=== PATIENT | male | born 1970 | race Caucasian/White ===

== ENCOUNTER → 2017-12-03 14:29 | Outpatient (CLI) | payer MEDICAID, SELFPAY ==
--- NOTE | 2017-12-03 14:33 | XR_ITS ---
XR shoulder LT min 2V HISTORY: ITS.REASON: follow up humerus fx/ internal, external y views ORDERING PHYSICIAN: Alexis Polanco MD PATIENT AGE: 47 years Comparison: 11/23/2017 FINDINGS: Comminuted impacted left humeral neck fracture once again noted with mild medial displacement of the distal fracture fragment. No significant callus formation. There remains moderate medial displacement of the distal fracture fragment. IMPRESSION: Overall no change comminuted and displaced left humeral neck fracture
== END ==
PROVIDERS: PCP Emergency Medicine; Visit Provider Orthopaedic Surgery
DX: S42.213A Unspecified displaced fracture of surgical neck of unspecified humerus, initial encounter for closed fracture (principal)
CPT/HCPCS: 73030

== ENCOUNTER 2020-02-29 20:01 | Inpatient (IN) | payer OTHER, SELFPAY ==
[2020-02-29 20:01] VITALS: BP 103/52; PULSE 100; RESP 18; TEMP 37.4; O2SAT 98; BMI 21.7
--- NOTE | 2020-02-29 20:06 | HMH.EDGENADL ---
ED Disposition Referrals: Demetrio Blackman MD [Primary Care Provider] - Attestation: On , the high probability of a clinically significant, sudden or life threatening deterioration of the following system(s) required my full and direct attention, intervention and personal management. The time I documented below is in addition to time spent performing reported procedures but includes the following listed in this critical care notation. General Adult HPI - General Stated complaint: knots on legs, can't walk Time Seen by Provider: 02/29/20 20:06 - Related Data Previous Rx's Medication Instructions Recorded propranolol 10 mg tablet 10 mg PO BID 90 Days #180 tab 12/17/19 albuterol sulfate 90 mcg/actuation See Rx Instructions .ROUTE 12/22/19 aerosol inhaler .COMPLEX #18 g tizanidine 4 mg tablet 4 mg PO BID PRN #14 tab 01/08/20 fluticasone furoate 100 See Rx Instructions .ROUTE 02/04/20 mcg-vilanterol 25 mcg/dose .COMPLEX #60 blister inhalation powder pantoprazole 40 mg tablet,delayed See Rx Instructions .ROUTE 02/04/20 release .COMPLEX #30 tab prochlorperazine maleate 5 mg 5 mg PO TID PRN #20 tab 02/27/20 tablet Allergies Allergy/AdvReac Type Severity Reaction Status Date / Time codeine [CODEINE] Allergy Unknown Nausea Verified 02/13/20 13:47 [facility] History - Hepatitis A Screen Attestation statement:: This patient has been screened for Hepatitis A risk factors. Medical History: Reports:: Seizures Denies:: Cancer, Diabetes Mellitus Type 1, Diabetes Mellitus Type 2, MRSA Other Surgeries: Yes: Hernia Repair Amputation: No Fractures: Yes - Social History Smoking Status: Current every day smoker Tobacco Type: cigarettes # Packs/Day (cigarettes): 1 Alcohol Intake: current Alcohol Intake Frequency:: 0-2 drinks per day Substance Use Type: denies use Occupational Status: unemployed Housing: apartment Family Hx:: Diabetes, Hypertension, Hyperlipidemia, Coronary Artery Disease, Cancer
--- NOTE | 2020-02-29 20:10 | ED_ITS ---
ED Disposition Referrals: Demetrio Blackman MD [Primary Care Provider] - Attestation: On 02/29/20, the high probability of a clinically significant, sudden or life threatening deterioration of the following system(s) required my full and direct attention, intervention and personal management. The time I documented below is in addition to time spent performing reported procedures but includes the following listed in this critical care notation. General Adult HPI - General Stated complaint: knots on legs, can't walk Time Seen by Provider: 02/29/20 20:06 - Related Data Previous Rx's Medication Instructions Recorded propranolol 10 mg tablet 10 mg PO BID 90 Days #180 tab 12/17/19 albuterol sulfate 90 mcg/actuation See Rx Instructions .ROUTE 12/22/19 aerosol inhaler .COMPLEX #18 g tizanidine 4 mg tablet 4 mg PO BID PRN #14 tab 01/08/20 fluticasone furoate 100 See Rx Instructions .ROUTE 02/04/20 mcg-vilanterol 25 mcg/dose .COMPLEX #60 blister inhalation powder pantoprazole 40 mg tablet,delayed See Rx Instructions .ROUTE 02/04/20 release .COMPLEX #30 tab prochlorperazine maleate 5 mg 5 mg PO TID PRN #20 tab 02/27/20 tablet Allergies Allergy/AdvReac Type Severity Reaction Status Date / Time codeine [CODEINE] Allergy Unknown Nausea Verified 02/13/20 13:47 [facility] History - Hepatitis A Screen Attestation statement:: This patient has been screened for Hepatitis A risk factors. Medical History: Reports:: Seizures Denies:: Cancer, Diabetes Mellitus Type 1, Diabetes Mellitus Type 2, MRSA Other Surgeries: Yes: Hernia Repair Amputation: No Fractures: Yes - Social History Smoking Status: Current every day smoker Tobacco Type: cigarettes # Packs/Day (cigarettes): 1 Alcohol Intake: current Alcohol Intake Frequency:: 0-2 drinks per day Substance Use Type: denies use Occupational Status: unemployed Housing: apartment Family Hx:: Diabetes, Hypertension, Hyperlipidemia, Coronary Artery Disease, Cancer
--- NOTE | 2020-02-29 20:14 | HMH.EDGENADL ---
ED Disposition Clinical Impression: Hyponatremia, Hypokalemia, Weakness, Acute alcohol abuse Disposition: Admitted As Inpatient Condition on Discharge: Fair Time of Disposition: 23:04 - Critical Care Critical Care Time: Yes Attestation: On 02/29/20, the high probability of a clinically significant, sudden or life threatening deterioration of the following system(s) required my full and direct attention, intervention and personal management. The time I documented below is in addition to time spent performing reported procedures but includes the following listed in this critical care notation. Total Critical Care Time: 30 Vital system(s) involved:: Metabolic Failure My critical care processes included: Assessment & monitoring of V/S, Initial and Re-exams, Data Review/Interpretation, Coordinating Care, Medication Orders and management, Documentation Medical Decision Making - Medical Records Medical records reviewed: Yes: I reviewed the patient's medical records. MR Comment: 49 yo Male presents the emergency department with weakness and rash in the lower extremities. He has had falls at home recently. He arrives the ED hemodynamically stable, with reassuring vital signs. Rash on his lower extremities initially appears petechial but it is palpable, nonblachable, and he has bruising of the right hip and other multiple larger bruises on his lower extremities. Will get labs and reassess. On reassessment, patient remained stable. Platelets are normal. His sodium is 110 and potassium is 1.8. He also has EKG changes, T waves are inverted, QRS wide, his sodium and potassium levels likely explain his bilateral lower extremity weakness. He is very been given a bolus of normal saline, started IV potassium rounds, he was given 2 g of magnesium, will also give thiamine and folate. Spoke with admitting physician, he will be admitted to the stepdown unit. CIWA protocol started given his history of alcoholism. Stable on admission. - Raffaele Inquiry Pt receiving controlled substance: No Vital Signs: 02/29/20 20:01 02/29/20 21:30 02/29/20 22:00 Temperature 99.3 F Temperature Source Oral Pulse Rate [Right Brachial] 100 H 94 H 100 H Respiratory Rate 18 17 22 Blood Pressure [Right Arm] 103/52 L 104/66 L 101/60 L Blood Pressure Mean [Right Arm] 69 78 73 Blood Pressure Source [Right Arm] Automatic Cuff Automatic Cuff Automatic Cuff Blood Pressure Position [Right Arm] Supine Supine 02 Sat by Pulse Oximetry 98 100 94 L Oxygen Delivery Method Room Air Room Air 02/29/20 22:30 02/29/20 23:44 03/01/20 00:00 Temperature 98.7 F 97.7 F Temperature Source Oral Oral Pulse Rate [Right Brachial] 88 86 101 H Respiratory Rate 17 24 22 Blood Pressure [Right Arm] 96/59 L 105/59 L 112/71 Blood Pressure Mean [Right Arm] 71 74 84 Blood Pressure Source [Right Arm] Automatic Cuff Blood Pressure Position [Right Arm] Supine 02 Sat by Pulse Oximetry 96 95 96 Oxygen Delivery Method Room Air Room Air Room Air - Lab Data Lab Results 02/29/20 20:36: WBC 4.6 L, RBC 3.14 L, Hgb 10.1 L, Hct 27.9 L, MCV 88.8, MCH 32.0 H, MCHC 36.0 H, RDW 13.8, Plt Count 148, MPV 9.2, Neut % (Auto) 69.5, Lymph % (Auto) 25.8, [place] % (Auto) 3.8, Eos % (Auto) 0.7, Baso % (Auto) 0.2, Neut # (Auto) 3.2, Lymph # (Auto) 1.2, [place] # (Auto) 0.2, Eos # (Auto) 0.0, Baso # (Auto) 0.0 02/29/20 20:36: PT 11.7, INR 1.15 H, APTT 29.0 02/29/20 20:36: Sodium 110 L*, Potassium 1.8 L*, Chloride 63 L, Carbon Dioxide 37 H, Anion Gap 11.8, BUN 9, Creatinine 0.60 L, Estimated Creat Clear 158, Estimated GFR 143, Est GFR ( Amer) 173, Glucose 126 H, Calcium 7.7 L, Total Bilirubin 1.9 H, AST 37, ALT 12, Alkaline Phosphatase 69, Total Protein 5.0 L, Albumin 2.7 L, Globulin 2.3, Albumin/Globulin Ratio 1.2 02/29/20 20:36: Plasma/Serum Alcohol 117 H 02/29/20 20:36: Phosphorus 2.7, Magnesium 1.4 L 02/29/20 20:36: SARS-CoV-2 IgG Ab (Rapid) Negative, SARS-CoV-2 IgM Ab (Rapid) Negative 02/29/20 21:57:
--- NOTE | 2020-02-29 20:25 | CT_ITS ---
PROCEDURE: CT HEAD/BRAIN WO CON CLINICAL INDICATION: weakness Generalized weakness, lower extremity weakness COMPARISON: CT HEADWO CT head/brain wo con from 01/19/2019 TECHNIQUE: Axial images obtained. All CT scans at the facility use one or more dose reduction, viz: automated exposure control, ma/kV adjustment per patient size (including targeted exams where dose is matched to indication, i.e. head), or iterative reconstruction technique. FINDINGS: No midline shift, mass effect, intracranial hemorrhage, hydrocephalus, or extra-axial fluid collection is evident. There is generalized atrophy with hypoattenuation of the periventricular white matter consistent with microangiopathic changes. The calvarium has an unremarkable appearance. No mastoid effusion. There is moderate mucosal thickening of the right maxillary sinus and mild mucosal thickening of the ethmoid sinuses. Medial right maxillary sinus osteotomy noted. There bubbly secretions in the nasopharynx and there is minimal mucosal thickening of the frontal sinuses. IMPRESSION: 1. No acute intracranial findings. 2. Sinus disease Dictated by: Doe Cervantes MD 03/01/2020 08:04 Doe Cervantes MD in [facility] 03/01/2020 08:04
--- NOTE | 2020-02-29 20:25 | XR_ITS ---
PROCEDURE: XR CHEST 2V CLINICAL HISTORY: weakness Smoker COMPARISON: CR CXR1 CHEST-PORTABLE from 08/23/2015 CR CXR1VP XR chest portable from 11/23/2017 CR XR CHEST 2V from 08/30/2019 FINDINGS: The cardiomediastinal silhouette and pulmonary vascularity are within normal limits. The lungs are clear without infiltrates, suspicious nodules, or pleural effusions. Nonspecific pleural thickening in the right lower hemithorax laterally. There is an old right 6th and 7th rib fracture. IMPRESSION: No acute findings. Dictated by: Doe Cervantes MD 03/01/2020 07:47 Doe Cervantes MD in [facility] 03/01/2020 07:47
--- NOTE | 2020-02-29 20:25 | XR_ITS ---
PROCEDURE: XR PELVIS 1-2V CLINICAL INDICATION: weakness COMPARISON: CR PEL1V XR pelvis 1-2V from 11/23/2017 TECHNIQUE: XR Pelvis AP View FINDINGS: No fracture or dislocation is evident. No significant degenerative change. No lytic or blastic change. IMPRESSION: No acute findings. Dictated by: Doe Cervantes MD 03/01/2020 07:48 Doe Cervantes MD in [facility] 03/01/2020 07:48
[2020-02-29 20:48] LABS: Basophils % 0.2 % (0.1-2.0); Eosinophils % 0.7 % (0.1-12.0); Hemoglobin 10.1 g/dL (14.1-18.0); Lymphocytes # 1.2 K/mm3 (0.7-4.5); Lymphocytes % 25.8 % (10-50); Mean Corpuscular Volume 88.8 fl (80-94); Mean Platelet Volume 9.2 fl (7.4-10.4); Monocytes # 0.2 K/mm3 (0.1-1.0); Monocytes % 3.8 % (1.7-9.3); Neutrophils # 3.2 K/mm3 (1.8-7.8); Neutrophils % 69.5 % (37.0-80.0); Platelet Count 148 K/mm3 (142-424); Red Blood Count 3.14 M/mm3 (4.60-6.20); Red Cell Distribution Width 13.8 % (11.5-17.5); White Blood Count 4.6 K/mm3 (4.8-10.8)
[2020-02-29 20:50] LABS: Hematocrit 27.9 % (42.0-52.0)
[2020-02-29 20:55] LABS: Alanine Aminotransferase 12 U/L (12-78); Bilirubin,Total 1.9 mg/dl (0.2-1.3); Blood Urea Nitrogen 9 mg/dl (9-20); Carbon Dioxide 37 mmol/L (22.0-30.0); Creatinine Clearance Estimated 158 mL/min (50-200); Estimated Glomerular Filt Rate 143 ml/min (>60); GFR (African American) 173 ML/MIN (>60); INR 1.15 (0.9-1.1); Prothrombin Time 11.7 seconds (9.4-11.8)
--- NOTE | 2020-02-29 21:22 | PC.NURSE ---
pt returned from CT
[2020-02-29 21:30] VITALS: BP 104/66; PULSE 94; RESP 17; O2SAT 100
[2020-02-29 21:35] LABS: Albumin Level 2.7 g/dl (3.5-5.0); Albumin/Globulin Ratio 1.2 (1.1-1.8); Alkaline Phosphatase 69 U/L (38-126); Anion Gap 11.8 mEq/L (5-15); Aspartate Amino Transferase 37 U/L (17-59); Calcium 7.7 mg/dl (8.4-10.2); Globulin 2.3 g/dL (1.3-3.2); Glucose 126 mg/dl (74-100)
[2020-02-29 21:39] LABS: Sodium 110 mmol/L (136-145)
[2020-02-29 21:40] LABS: Chloride 63 mmol/L (98-107); Potassium 1.8 mmoL/L (3.5-5.1)
[2020-02-29 21:41] LABS: Ethyl Alcohol 117 mg/dl (0-10)
--- NOTE | 2020-02-29 21:51 | PC.NURSE ---
call resp for VBG
[2020-02-29 21:55] LABS: Magnesium 1.4 mg/dl (1.6-2.3); Phosphorous 2.7 mg/dl (2.5-4.5)
[2020-02-29 21:58] LABS: VBG Base Excess 11.3 mmol/L (-2.4-2.3); VBG HCO3 31.2 mmol/L (23-30); VBG Oxygen Saturation 98.9 % (50-70); VBG PCO2 25.6 mmol/L (35-51); VBG PO2 197.7 mmol/L (28-40)
[2020-02-29 22:00] VITALS: BP 101/60; PULSE 100; RESP 22; O2SAT 94
--- NOTE | 2020-02-29 22:01 | ECG_ITS ---
APPROVED REPORT Exam: Resting ECG HR:104 bpm ECG Measurements Heart Rate 104 AXES QRSd 96 QRS 38 QT 526 T -46 QTc 691 <Conclusion> Sinus rhythm with First Degree AV Block with premature supraventricular complexes with occasional premature ventricular complexes T wave abnormality, consider inferior ischemia Abnormal ECG Electronically signed by : Joel Soliz, 03/02/2020 12:34:51
[2020-02-29 22:27] LABS: Microscopic, Urine URINE MICROSCOPIC (MICROSCOPIC)
[2020-02-29 22:28] LABS: Coronavirus 19 IgG Antibody Negative (Negative)
[2020-02-29 22:28] LABS: Appearance,Urine CLEAR (Clear); Bilirubin,Urine Negative (Negative); Blood, Urine Negative (Negative); Color,Urine DK YELLOW (Yellow); Glucose,Urine (UA) 1+ (Negative); Ketones,Urine Negative (Negative); Leukocyte Esterase,Urine Negative (Negative); Nitrate,Urine Negative (Negative); Protein,Urine TRACE (Negative); Specific Gravity, Urine 1.015 (1.005-1.030); Urobilinogen,Urine >=8.0 EU/dl (0.2)
[2020-02-29 22:29] LABS: Coronavirus 19 IgM Antibody Negative (Negative)
[2020-02-29 22:30] VITALS: BP 96/59; PULSE 88; RESP 17; O2SAT 96
[2020-02-29 22:31] LABS: PH,Urine >= 9.0 (5.0-8.5)
[2020-02-29 23:44] VITALS: BP 105/59; PULSE 86; RESP 24; TEMP 37.1; O2SAT 95
[2020-03-01] VITALS (22 sets, daily range): BP systolic 87–144; BP diastolic 40–87; PULSE 80–110; RESP 20–28; TEMP 36.4–38.4; O2SAT 90–97; BMI 23.6; BMI 23.2
--- NOTE | 2020-03-01 00:19 | PC.NURSE ---
patient up to floor via stretcher.
--- NOTE | 2020-03-01 02:33 | PC.NURSE ---
Pt restless and confused in bed. Tremors noted. Pt noted upon assessment to have raised areas and rash to BLE. He also has multiple bruising to inner thighs, (R) hip, buttocks and scrotum. Pictures on chart. Pt is receiving potassium infusions along with NS at this time. VSS. Will continue to monitor.
--- NOTE | 2020-03-01 08:11 | PC.NURSE ---
yoselyn singh rn provided care and documentation with my assistance and supervision
[2020-03-01 08:51] LABS: Anion Gap 8.3 mEq/L (5-15); Blood Urea Nitrogen 8 mg/dl (9-20); Calcium 7.2 mg/dl (8.4-10.2); Carbon Dioxide 31 mmol/L (22.0-30.0); Creatinine Clearance Estimated 251 mL/min (50-200); Estimated Glomerular Filt Rate 229 ml/min (>60); GFR (African American) 277 ML/MIN (>60); Glucose 110 mg/dl (74-100); Magnesium 1.9 mg/dl (1.6-2.3)
[2020-03-01 09:01] LABS: Chloride 75 mmol/L (98-107); Potassium 2.3 mmoL/L (3.5-5.1); Sodium 112 mmol/L (136-145)
--- NOTE | 2020-03-01 09:09 | HMH.PHAVTE ---
[facility] Pharmacy VTE Monitoring - Patient Demographics Admission date: 02/29/20 Report Date: 03/01/20 Time: 09:09 Allergies/Adverse Reactions: Patient Allergies codeine [CODEINE] Allergy (Unknown, Verified 02/29/20 20:39) Nausea Height: 1.85 m Weight: 79.549 kg Patient Problems: Current Active Problems Hypokalemia (Acute) Acute alcohol abuse (Acute) Hyponatremia (Acute) Weakness (Acute) - VTE Risk Labs: VTE Related Lab Results Hgb 10.1 g/dL (14.1-18.0) L 02/29/20 20:36 Hct 27.9 % (42.0-52.0) L 02/29/20 20:36 Plt Count 148 K/mm3 (142-424) 02/29/20 20:36 PT 11.7 seconds (9.4-11.8) 02/29/20 20:36 INR 1.15 (0.9-1.1) H 02/29/20 20:36 APTT 29.0 seconds (23.6-34.0) 02/29/20 20:36 BUN 8 mg/dl (9-20) L 03/01/20 08:20 Creatinine 0.40 mg/dl (0.66-1.25) L D 03/01/20 08:20 Estimated Creat Clear 251 mL/min (50-200) 03/01/20 08:20 Was VTE Risk Assessment Performed: Yes VTE Score: 1 VTE Risk Level: Very Low Risk - Prophylaxis VTE Prophylaxis Ordered?: Yes Types of VTE Prophylaxis: TEDS Knee High Location of Applied Device: Bilateral Lower Extremeties - VTE Diagnosis Confirmed Treatment or plan recommended: Continue Current Treatment
--- NOTE | 2020-03-01 09:09 | PC.NURSE ---
SPOKE WITH Marie MURPHY REGARDING PT LABS NA 112, K 2.3, PT STARTED ON NS 20K AT THIS TIME
--- NOTE | 2020-03-01 09:13 | HMH.PHAINT ---
MEDICATION RECONCILIATION COMPLETED ON PATIENT USING EXTERNAL FILL HISTORY FROM PHARMACY AND LIST FROM MD OFFICE. -JAYDEN KUNZD
[2020-03-01 09:35] LABS: Basophils % 0.4 % (0.1-2.0); Eosinophils # 0.1 K/mm3 (0.0-0.4); Eosinophils % 2.2 % (0.1-12.0); Hematocrit 25.8 % (42.0-52.0); Hemoglobin 9.4 g/dL (14.1-18.0); Lymphocytes # 0.7 K/mm3 (0.7-4.5); Lymphocytes % 18.3 % (10-50); Mean Corpuscular HGB Conc 36.4 g/dL (31.8-35.4); Mean Corpuscular Hemoglobin 32.8 pg (27.0-31.2); Mean Corpuscular Volume 90.2 fl (80-94); Mean Platelet Volume 8.5 fl (7.4-10.4); Monocytes # 0.2 K/mm3 (0.1-1.0); Monocytes % 4.8 % (1.7-9.3); Neutrophils # 2.7 K/mm3 (1.8-7.8); Neutrophils % 74.4 % (37.0-80.0); Platelet Count 143 K/mm3 (142-424); Red Blood Count 2.85 M/mm3 (4.60-6.20); White Blood Count 3.7 K/mm3 (4.8-10.8)
[2020-03-01 10:17] LABS: POC Glucose,Bedside 129 (70-110)
--- NOTE | 2020-03-01 13:01 | HMH.HP ---
*Admission Date: 02/29/20 *History of present illness: HPI narrative: 49-year-old male with history of hypertension hyperlipidemia presents the emergency department with weakness, and pain in his bilateral lower extremities. Mother states he has had a few falls at home recently, and has a bruise on his right hip. Mother gives a lot of the history for the patient, and states that he has had a rash pop up on his bilateral lower extremities over the last few days. She states he has not felt well and has had some weakness and pain in his legs over the last couple of weeks but the rash is newer. She also states he is had a cough. No fever. No history of symptoms like this prior. He denies any vertigo or dizziness. He denies any chest pain or back pain. He denies any trouble breathing. His main complaint is pain and weakness in his legs. He has not taken anything for this, denies anything makes it better or worse. No history of blood clots in the past. underwent ct brain FINDINGS: No midline shift, mass effect, intracranial hemorrhage, hydrocephalus, or extra-axial fluid collection is evident. There is generalized atrophy with hypoattenuation of the periventricular white matter consistent with microangiopathic changes. The calvarium has an unremarkable appearance. No mastoid effusion. There is moderate mucosal thickening of the right maxillary sinus and mild mucosal thickening of the ethmoid sinuses. Medial right maxillary sinus osteotomy noted. There bubbly secretions in the nasopharynx and there is minimal mucosal thickening of the frontal sinuses. IMPRESSION: 1. No acute intracranial findings. 2. Sinus disease History of ETOH. Few falls at home with eccymosis right hip. pelvis xray neg cxr neg hypokalemic and hyponatremic on admission serax given lytes being replaced H History Medical History: Reports:: Seizures Denies:: Cancer, Diabetes Mellitus Type 1, Diabetes Mellitus Type 2, MRSA *Have you ever received a pneumonia vaccine?: No *Have you received a flu vaccine this season?: No Other Surgeries: Yes: Hernia Repair Amputation: No Fractures: Yes - *Social History Last grade of school completed: High school graduate Smoking Status: Current every day smoker Tobacco Type: cigarettes # Packs/Day (cigarettes): 1 Alcohol Intake: current Alcohol Intake Frequency:: 3 or more drinks per day Substance Use Type: denies use *Occupational Status:: disabled Housing: apartment Household Members: none *Travel in the last 8 weeks: None Family Hx:: Diabetes, Heart Attack Review of Systems - Review of Systems Review of systems:: unable to obtain Meds Home Medications Medication Instructions Recorded Confirmed Type Albuterol Sulfate [Proventil Hfa] 2 puffs IH BIDP PRN 02/29/20 03/01/20 History Fluticasone/Vilanterol [Breo 1 puff IH DAILY 02/29/20 03/01/20 History Ellipta 100-25 Mcg INH] Pantoprazole Sodium [Protonix 40mg 40 mg PO DAILY 02/29/20 03/01/20 History tablet] Prochlorperazine Maleate 5 mg PO TIDP PRN 03/01/20 03/01/20 History [Compazine 5mg tablet] Propranolol HCl 10 mg PO BID 03/01/20 02/29/20 History Tizanidine HCl 4 mg PO BIDP PRN 03/01/20 03/01/20 History Allergies Allergy/AdvReac Type Severity Reaction Status Date / Time codeine [CODEINE] Allergy Unknown Nausea Verified 02/29/20 20:39 Exam Vital signs and Labs for Last 24 Hours: Temp Pulse Resp BP Pulse Ox 97.9 F 99 H 20 115/75 95 03/01/20 10:00 03/01/20 12:00 03/01/20 12:00 03/01/20 12:00 03/01/20 12:00 Laboratory Results - last 24 hr 02/29/20 20:36: WBC 4.6 L, RBC 3.14 L, Hgb 10.1 L, Hct 27.9 L, MCV 88.8, MCH 32.0 H, MCHC 36.0 H, RDW 13.8, Plt Count 148, MPV 9.2, Neut % (Auto) 69.5, Lymph % (Auto) 25.8, [place] % (Auto) 3.8, Eos % (Auto) 0.7, Baso % (Auto) 0.2, Neut # (Auto) 3.2, Lymph # (Auto) 1.2, [place] # (Auto) 0.2, Eos # (Auto) 0.0, Baso # (Auto) 0.0 02/29/20 20:36: PT 11.7, INR 1.15 H,
--- NOTE | 2020-03-01 18:27 | PC.NURSE ---
PT HAS BEEN IN THE BED ALL SHIFT. PT IS NOT ALERT/ORIENTED AND HAS A CIWA SCORE OF 13. MODERATE TREMORS. MILD PERSPIRATION. MANUAL BP'S T/O THE SHIFT B/C MONITOR WILL NOT RUG CLIPPER CORRECTLY WITH TREMORS. PT WAS MEDICATED WITH 2 DOSES OF ATIVAN 2 MG IV THAT PCP ORDERED FOR Q4H PRN. PT HAS NOT BEEN ALERT ENOUGH TO EAT ANYTHING THIS SHIFT BUT WAS ABLE TO TAKE HIS SERAX EARLIER THIS AFTERNOON WITH A SIP OF WATER AND LATER THIS AFTERNOON PO MEDS WERE CRUSHED AND MIXED WITH APPLESAUCE AND PT SPIT MOST OF APPLESAUCE AND PILLS OUT. PT HAS BRUISING NOTED TO THE LEFT HIP AND SCROTUM AND ALSO A RASH NOTED TO BLE. ACCORDING TO PT'S FRIEND THAT CAME TO SEE PT TODAY PT DRINKS FROM THE TIME HE WAKES UP TILL THE TIME HE GOES TO BED. FRIEND STATED PT FELL THE OTHER DAY SEVERAL TIMES WHEN HE WALKING AROUND DRUNK. PT'S MOTHER ARRIVED TO SEE PT THIS EVENING AND SHE STATED FAR SHE KNOWS PT'S LAST DRINK WAS 2-3 DAYS AGO AND PT HAS BEEN AN ALCOHOLIC SINCE HE WAS 16.
--- NOTE | 2020-03-01 19:10 | PC.NURSE ---
report given to florence
[2020-03-01 19:39] LABS: Anion Gap 8.5 mEq/L (5-15); Blood Urea Nitrogen 8 mg/dl (9-20); Carbon Dioxide 30 mmol/L (22.0-30.0); Creatinine Clearance Estimated 201 mL/min (50-200); Estimated Glomerular Filt Rate 177 ml/min (>60); GFR (African American) 214 ML/MIN (>60)
[2020-03-01 19:40] LABS: Calcium 7.5 mg/dl (8.4-10.2); Glucose 105 mg/dl (74-100)
[2020-03-01 19:57] LABS: POC Glucose,Bedside 112 (70-110)
[2020-03-01 19:59] LABS: Chloride 78 mmol/L (98-107)
[2020-03-01 20:00] LABS: Potassium 2.5 mmoL/L (3.5-5.1); Sodium 114 mmol/L (136-145)
[2020-03-02] VITALS (16 sets, daily range): BP systolic 107–142; BP diastolic 48–76; PULSE 85–100; RESP 16–20; TEMP 36.3–37.2; O2SAT 92–98; BMI 23.4
--- NOTE | 2020-03-02 04:37 | PC.NURSE ---
Pt has not been alert or oriented this shift. Responding to tactile stimulation, localizes pain, and has occasional mumbled/garbled speech for a GCS 9-10 this shift. CIWA's completed q2 per protocol, 13 at the beginning of the shift and current score 8. Pt has slept quietly for a few hours and then became restless in the bed. Ativan IV administered x2 for agitation, with effective response on reassessment. Yanker suction completed several times this shift d/t secretion accumulation. Oral care provided q2. TEDS have been in place BLE in intervals this shift d/t loose BM's and need for new application. Dense bruising and petechiea noted to skin. Rhochi noted on lung auscultation. O2 applied at 1LPM via nc for short duration d/t SaO2 88%, weaned back to room air quickly. current sat 96%. VSS, call light within reach, bed alarm in use, and seizure pads in place.
[2020-03-02 06:41] LABS: Basophils % 0.1 % (0.1-2.0); Eosinophils % 0.8 % (0.1-12.0); Hematocrit 24.9 % (42.0-52.0); Hemoglobin 8.8 g/dL (14.1-18.0); Lymphocytes # 0.6 K/mm3 (0.7-4.5); Lymphocytes % 20.2 % (10-50); Mean Corpuscular HGB Conc 35.4 g/dL (31.8-35.4); Mean Corpuscular Hemoglobin 32.6 pg (27.0-31.2); Monocytes # 0.1 K/mm3 (0.1-1.0); Monocytes % 3.3 % (1.7-9.3); Neutrophils # 2.2 K/mm3 (1.8-7.8); Neutrophils % 75.6 % (37.0-80.0); Platelet Count 126 K/mm3 (142-424); Red Cell Distribution Width 14.4 % (11.5-17.5); White Blood Count 2.9 K/mm3 (4.8-10.8)
[2020-03-02 06:59] LABS: Chloride 86 mmol/L (98-107); Sodium 121 mmol/L (136-145)
[2020-03-02 07:02] LABS: Blood Urea Nitrogen 7 mg/dl (9-20); Calcium 7.6 mg/dl (8.4-10.2); Carbon Dioxide 29 mmol/L (22.0-30.0); Creatinine Clearance Estimated 201 mL/min (50-200); Estimated Glomerular Filt Rate 177 ml/min (>60); GFR (African American) 214 ML/MIN (>60); Glucose 102 mg/dl (74-100)
[2020-03-02 07:17] LABS: POC Glucose,Bedside 104 (70-110)
--- NOTE | 2020-03-02 09:39 | XR_ITS ---
PROCEDURE: XR CHEST PORTABLE CLINICAL HISTORY: SOA COMPARISON: CR CXR1VP XR chest portable from 11/23/2017 CR XR CHEST 2V from 08/30/2019 CR XR CHEST 2V from 02/29/2020 FINDINGS: Borderline cardiomegaly without failure. There are increased markings in the lower lobes on both sides which may only be related to summation density from overlying soft tissues. This may be confirmed with upright PA and lateral chest as underlying infiltrate cannot be excluded in the lung bases. There is also increased density in the right upper lobe laterally which may be due to summation artifact from the overlying scapula and ribs. There is an old left humeral neck fracture. IMPRESSION: Somewhat limited study with increased markings in the right upper lobe and both lower lobes which may be due to artifact. Cannot exclude underlying alveolar disease. Upright PA and lateral chest may provide further evaluation. Dictated by: Doe Cervantes MD 03/02/2020 10:33 Doe Cervantes MD in [facility] 03/02/2020 10:33
--- NOTE | 2020-03-02 09:39 | HMH.ACPN2 ---
Internal Medicine - PN: Subj *Date: 03/02/20 *Time: 17:42 Interval history: 49-year-old male patient lying in bed moaning softly unresponsive to verbal stimuli is responsive to tactile stimuli. Staff reports he is required additional doses of Ativan IVP during the night due to restlessness, Serax is scheduled patient has had difficulty at times ingesting p.o. meds. He is receiving ceftriaxone and azithromycin IVPB prophylactically for CAP sodium today 121 potassium was 3.0 Exam Vital signs and Labs for Last 24 Hours: Temp Pulse Resp BP Pulse Ox 97.4 F L 96 H 20 128/52 L 98 03/02/20 08:33 03/02/20 08:00 03/02/20 08:00 03/02/20 08:00 03/02/20 08:00 Laboratory Results - last 24 hr 03/01/20 06:39: POC Glucose 129 H 03/01/20 19:22: Sodium 114 L*, Potassium 2.5 L*, Chloride 78 L, Carbon Dioxide 30, Anion Gap 8.5, BUN 8 L, Creatinine 0.50 L D, Estimated Creat Clear 201, Estimated GFR 177, Est GFR ( Amer) 214 D, Glucose 105 H, Calcium 7.5 L 03/01/20 19:47: POC Glucose 112 H 03/02/20 05:35: WBC 2.9 L, RBC 2.70 L, Hgb 8.8 L, Hct 24.9 L, MCV 92.0, MCH 32.6 H, MCHC 35.4, RDW 14.4, Plt Count 126 L, MPV 8.0, Neut % (Auto) 75.6, Lymph % (Auto) 20.2, [place] % (Auto) 3.3, Eos % (Auto) 0.8, Baso % (Auto) 0.1, Neut # (Auto) 2.2, Lymph # (Auto) 0.6 L, [place] # (Auto) 0.1, Eos # (Auto) 0.0, Baso # (Auto) 0.0 03/02/20 05:35: Sodium 121 L, Potassium 3.0 L, Chloride 86 L, Carbon Dioxide 29, Anion Gap 9.0, BUN 7 L, Creatinine 0.50 L, Estimated Creat Clear 201, Estimated GFR 177, Est GFR ( Amer) 214, Glucose 102 H, Calcium 7.6 L 03/02/20 06:41: POC Glucose 104 I & O for Last 24 hours: Intake & Output 02/28/20 02/29/20 03/01/20 03/02/20 23:59 23:59 23:59 23:59 Intake Total 135 / 135 3637 / 3637 Output Total 800 / 800 460 / 460 1300 / 1300 Balance -800 / -800 -325 / -325 2337 / 2337 Weight 165 lb 175 lb 6 oz 177 lb - Constitutional chronically ill appearing - *Routine HEENT Exam Head: Present: normocephalic ENT: Present: mucous membranes dry - *Routine Neck Exam Present: trachea midline. Absent: tracheal deviation - *Routine Respiratory Exam Present: rhonchi, wheezes - *Routine Cardiovascular Exam Present: RRR - *Routine Abdominal Exam Present: soft. Absent: firm - *Routine Extremities Exam Present: pulses intact. Absent: edema, amputation - *Routine Skin Exam Present: intact, warm. Absent: cyanosis, wounds - *Routine Neurological Exam Present: altered mental status - Routine Psychiatric Exam Present: unable to assess Assessment and Plan (1) Hypokalemia Current visit: Yes Status: Acute Category: Medical Code(s): E87.6 - Hypokalemia (2) Contusion Current visit: Yes Status: Acute Category: Medical Code(s): T14.8XXA - Other injury of unspecified body region, initial encounter (3) Acute alcohol abuse Current visit: Yes Status: Chronic Category: Medical Code(s): F10.10 - Alcohol abuse, uncomplicated (4) Hyponatremia Current visit: Yes Status: Acute Category: Medical Code(s): E87.1 - Hypo-osmolality and hyponatremia (5) Weakness Current visit: Yes Status: Acute Category: Medical Code(s): R53.1 - Weakness (6) Alcoholism Current visit: No Status: Chronic Category: Medical Code(s): F10.20 - Alcohol dependence, uncomplicated (7) Tobacco use Current visit: No Status: Chronic Category: Social Hx Code(s): Z72.0 - Tobacco use (8) Hypomagnesemia Current visit: Yes Status: Acute Category: Medical Code(s): E83.42 - Hypomagnesemia - Assessment and plan all Dx Assessment and Plan for all problems:: Rounded with Dr. Gresham, all orders for Dr. Gresham: 1. Continue antibiotics 2. We will order chest x-ray 3. Ammonia stat 4. We will start Protonix 40 mg IV daily
[2020-03-02 12:46] LABS: Ammonia < 9 umol/L (9-30)
--- NOTE | 2020-03-02 13:29 | PC.NURSE ---
PT IS RESTING IN BED. CIWA SCORE OF 10. PT HAS HAD TREMORS THIS SHIFT BUT THEY ARE BETTER THAN THEY WERE YESTERDAY. PT STILL HAS THE SAME BRUISING NOTED TO HIS RT HIP AND SCROTUM. PT HAD REQUIRED ORAL CARE AND SUCTIONING FREQUENTLY(HORRIBLE DENTAL HYGIENE). PT HAD BLOOD TINGED SPUTUM SUCTIONED EARLIER (REPORTED TO SLOAN RAMESH). LUNG SOUNDS HAVE SCATTERED RHONCHI T/O. WHILE SUCTIONING PT OPENED HIS EYES AND STATED 2X ( I'M DRUNK) PT WAS REASSURED THAT HE WAS NOT DRUNK AND HE WAS IN THE HOSPITAL. BOWEL SOUNDS NORMAL. VSS. WILL CONTINUE TO MONITOR.
[2020-03-02 18:04] LABS: POC Glucose,Bedside 114 (70-110)
[2020-03-02 18:04] LABS: POC Glucose,Bedside 156 (70-110)
[2020-03-02 18:45] LABS: POC Glucose,Bedside 91 (70-110)
[2020-03-02 18:45] LABS: POC Glucose,Bedside 91 (70-110)
[2020-03-03] VITALS (17 sets, daily range): BP systolic 101–159; BP diastolic 45–75; PULSE 80–96; RESP 18–40; TEMP 36.4–36.8; O2SAT 97–100; BMI 23.4
--- NOTE | 2020-03-03 02:37 | PC.NURSE ---
Pt continues to be only responsive to tactile stimuli. Pt has opened his eyes in fleeting moments during stimulation. Pt continues to not follow any commands. Wheezing and Rhonchi noted on lung auscultation. SaO2 >96% on room air thus far. Visible tremors greatly reduced in frequency compared to prev dumper operator. Mild- Moderate tremors still felt. Pt has been turned and repositioned q2-prn. NSR with 1st degree AVB noted on tele. Alberto cath in place d/t strict I/O, draining light asuncion- ylw/baum colored urine to gravity. Peripheral pulses 2+, no edema noted. Dense, scattered bruising noted to buttocks R>L, hips, scrotum, and light bruising to BLE. TEDS in place to BLE. Frequent oral care and mouth moisturizer applied. 1 small pasty/soft BM thus far. ABD is soft, non-tender with hypoactive BS noted. VSS, call light within reach, bed alarm active, seizure and safety precautions in use, will continue to monitor.
[2020-03-03 05:55] LABS: POC Glucose,Bedside 81 (70-110)
[2020-03-03 06:43] LABS: Chloride 102 mmol/L (98-107); Sodium 129 mmol/L (136-145)
[2020-03-03 06:44] LABS: Potassium 3.1 mmoL/L (3.5-5.1)
[2020-03-03 06:47] LABS: Anion Gap 13.1 mEq/L (5-15); Blood Urea Nitrogen 4 mg/dl (9-20); Calcium 7.6 mg/dl (8.4-10.2); Carbon Dioxide 17 mmol/L (22.0-30.0); Creatinine Clearance Estimated 254 mL/min (50-200); Estimated Glomerular Filt Rate 229 ml/min (>60); GFR (African American) 277 ML/MIN (>60); Glucose 78 mg/dl (74-100)
[2020-03-03 06:54] LABS: Basophils % 0.2 % (0.1-2.0); Eosinophils # 0.1 K/mm3 (0.0-0.4); Eosinophils % 2.1 % (0.1-12.0); Hematocrit 24.8 % (42.0-52.0); Hemoglobin 8.3 g/dL (14.1-18.0); Lymphocytes # 0.7 K/mm3 (0.7-4.5); Lymphocytes % 31.4 % (10-50); Mean Corpuscular HGB Conc 33.5 g/dL (31.8-35.4); Mean Corpuscular Hemoglobin 32.4 pg (27.0-31.2); Mean Corpuscular Volume 96.7 fl (80-94); Monocytes # 0.1 K/mm3 (0.1-1.0); Monocytes % 3.9 % (1.7-9.3); Neutrophils # 1.4 K/mm3 (1.8-7.8); Neutrophils % 62.4 % (37.0-80.0); Platelet Count 118 K/mm3 (142-424); Red Blood Count 2.56 M/mm3 (4.60-6.20); Red Cell Distribution Width 14.5 % (11.5-17.5); White Blood Count 2.3 K/mm3 (4.8-10.8)
--- NOTE | 2020-03-03 07:12 | PC.NURSE ---
Pt completed breakfast tray while in bed, pt refused to get OOB to chair. Pt ate ~ 50% of breakfast and tolerated well without any. Although pt feels and dull ache left chest to epigastric. Pt reports she thinks she is sitting up too much and wanted HOB to be let down some. No change on tele, NSR with BBB and rate of 101.
--- NOTE | 2020-03-03 08:58 | HMH.ACPN2 ---
Internal Medicine - PN: Subj *Date: 03/03/20 *Time: 12:07 Interval history: 49-year-old male patient lying in bed is responsive to tactile stimuli. Will answer simple yes or no questions. 2 doses of Ativan IV given during the night for restlessness. Had lengthy discussion regarding the patient's condition with mother Chest x-ray obtained 03/02/2020: IMPRESSION: Somewhat limited study with increased markings in the right upper lobe and both lower lobes which may be due to artifact. Cannot exclude underlying alveolar disease. Upright PA and lateral chest may provide further evaluation. Dictated by: Billy Patient is unable to sit upright in wheelchair or follow commands, he is being treated for pneumonia with azithromycin and Rocephin clindamycin will also be ordered today Exam Vital signs and Labs for Last 24 Hours: Temp Pulse Resp BP Pulse Ox 97.6 F 88 22 113/63 99 03/03/20 08:00 03/03/20 08:00 03/03/20 08:00 03/03/20 08:00 03/03/20 08:00 Laboratory Results - last 24 hr 03/01/20 10:46: POC Glucose 114 H 03/01/20 17:17: POC Glucose 156 H 03/02/20 11:55: POC Glucose 91 03/02/20 12:20: Ammonia < 9 L 03/02/20 16:29: POC Glucose 91 03/03/20 05:21: POC Glucose 81 03/03/20 05:54: WBC 2.3 L, RBC 2.56 L, Hgb 8.3 L, Hct 24.8 L, MCV 96.7 H, MCH 32.4 H, MCHC 33.5, RDW 14.5, Plt Count 118 L, MPV 8.0, Neut % (Auto) 62.4, Lymph % (Auto) 31.4, [place] % (Auto) 3.9, Eos % (Auto) 2.1, Baso % (Auto) 0.2, Neut # (Auto) 1.4 L, Lymph # (Auto) 0.7, [place] # (Auto) 0.1, Eos # (Auto) 0.1, Baso # (Auto) 0.0 03/03/20 05:54: Sodium 129 L, Potassium 3.1 L, Chloride 102, Carbon Dioxide 17 L D, Anion Gap 13.1, BUN 4 L D, Creatinine 0.40 L, Estimated Creat Clear 254, Estimated GFR 229, Est GFR ( Amer) 277 D, Glucose 78, Calcium 7.6 L I & O for Last 24 hours: Intake & Output 02/29/20 03/01/20 03/02/20 03/03/20 23:59 23:59 23:59 23:59 Intake Total 135 / 135 3637 / 3637 3277 / 3277 Output Total 800 / 800 460 / 460 2280 / 2280 1100 / 1100 Balance -800 / -800 -325 / -325 1357 / 1357 2177 / 2177 Weight 165 lb 175 lb 6 oz 177 lb 177 lb 2 oz - Constitutional no acute distress, chronically ill appearing, disheveled - *Routine HEENT Exam Head: Present: normocephalic ENT: Present: mucous membranes dry - *Routine Neck Exam Present: trachea midline. Absent: tracheal deviation - *Routine Respiratory Exam Present: rhonchi - *Routine Cardiovascular Exam Present: RRR - *Routine Abdominal Exam Present: soft, normoactive bowel sounds. Absent: firm - *Routine Extremities Exam Present: pulses intact. Absent: cyanosis, edema - *Routine Skin Exam Present: intact, warm. Absent: jaundice - *Routine Neurological Exam Present: altered mental status - Routine Psychiatric Exam Present: unable to assess Assessment and Plan (1) Hypokalemia Current visit: Yes Status: Acute Category: Medical Code(s): E87.6 - Hypokalemia (2) Contusion Current visit: Yes Status: Acute Category: Medical Code(s): T14.8XXA - Other injury of unspecified body region, initial encounter (3) Acute alcohol abuse Current visit: Yes Status: Chronic Category: Medical Code(s): F10.10 - Alcohol abuse, uncomplicated (4) Hyponatremia Current visit: Yes Status: Acute Category: Medical Code(s): E87.1 - Hypo-osmolality and hyponatremia (5) Weakness Current visit: Yes Status: Acute Category: Medical Code(s): R53.1 - Weakness (6) Alcoholism Current visit: No Status: Chronic Category: Medical Code(s): F10.20 - Alcohol dependence, uncomplicated (7) Tobacco use Current visit: No Status: Chronic Category: Social Hx Code(s): Z72.0 - Tobacco use (8) Hypomagnesemia Current visit: Yes Status: Acute Category: Medical Code(s): E83.42 - Hypomagnesemia - Assessment and plan all Dx Assessment and Plan for all problems:: Rounded with Dr. Gresham, all orders per Dr. Gresham: 1. Continue cheyanne
--- NOTE | 2020-03-03 10:10 | PC.NURSE ---
HOLDING SERAX PER MD. PT RESPONDS TO VERBAL COMMANDS, MINIMALLY. ABLE TO ANSWER YES OR NO QUESTIONS NOW. PT ALSO REQUEST TO LAY ON BACK INSTEAD OF SIDES. ENCOURAGED PT TO COUGH AND SPIT OUT ANYTHING HE COUGHS UP.
[2020-03-03 10:15] LABS: POC Glucose,Bedside 73 (70-110)
--- NOTE | 2020-03-03 18:16 | PC.NURSE ---
pt more alert. responds to conversation. still encouraging pt to use IS and to could up anything possible. spoke with Kvng HENSON regarding pt breathing, no new orders given. ventura cath in place, draining dark yellow urine. spoke with Benoit Singh, clindamycin is compatable with multi vit, folic acid, mag, vit k, thiamine, and LR. attempt to get a second iv has been unsuccessful. crow hose in place. vss. will cont. to monitor.
[2020-03-03 18:19] LABS: POC Glucose,Bedside 75 (70-110)
--- NOTE | 2020-03-03 18:29 | PC.NURSE ---
second iv placed by Alessio Farley RN #[id number] in [facility]
--- NOTE | 2020-03-03 19:04 | PC.NURSE ---
report given to florence
[2020-03-03 21:14] LABS: POC Glucose,Bedside 77 (70-110)
[2020-03-04] VITALS (10 sets, daily range): BP systolic 105–145; BP diastolic 61–80; PULSE 70–106; RESP 20–38; TEMP 36.4–37; O2SAT 98–100; BMI 23.6
--- NOTE | 2020-03-04 04:05 | PC.NURSE ---
ALERT TO PERSON AND PLACE BUT NOT TO TIME. SERVICE OPERATIONS MANAGER EQUAL BILAT. AGITATION NOTED AT TIMES THIS SHIFT. PT DEMANDING I AM GOING TO GO HOME. LET ME TALK TO THE DOCTOR. INFORMED PT OF IMPORTANCE OF STAYING IN THE HOSPITAL AND THAT IT WAS UNSAFE FOR HIM TO GO HOME AT THIS TIME R/T WEAKNESS AND RESPIRATORY STATUS. AFTER TALKING WITH PT ABOUT NEED TO STAY IN THE HOSPITAL AND USE OF PRN AND SCHEDULED MEDICATIONS TO HELP WITH AGITATION, PT MORE COOPERATIVE WITH CARE. TOLERATED SWALLOWING WATER/JUICE AND PILLS THIS SHIFT WELL. LUNGS NOTED WITH RHONCHI. COPIOUS AMOUNT OF BROWN/GREEN, THICK SPUTUM NOTED. COUGH IS LOOSE/ PRODUCTIVE, SPUTUM SPECIMEN COLLECTED AND SENT TO LAB. COUGH WAS ALSO NOTED WEAK. HARVEY USED PRN TO SUCTION SPUTUM INTO SUCTION CANISTER TO ASSIST PT TO CLEAR AIRWAY. ENCOURAGED USED OF INCENTIVE SPIROMETER, PT REFUSED TO USE IT OR DO DEEP BREATHING EXERCISES DESPITE EDUCATION OF IMPORTANCE. MD BUILDING SERVICES COORDINATOR NOTIFIED REGARDING PT'S BREATHING PATTERN TWICE THIS SHIFT, ORDER FOR XOPENEX OBTAINED AND ADMINISTERED PER AUG. ON REASSESSMENT, BREATHING PATTERN UNCHANGED, ADMINISTERED ATIVAN PER AUG, ON REASSESSMENT RR DECREASED FROM RR OF 40 TO 30'S. PT RESTED WITH EYES CLOSED. PULSES +2, CAP REFILL < 3 SEC. NSR WITH FIRST DEGREE HB. AT 0332 PT HAD AN ASYMPTOMATIC RUN OF VTACH. RN WAS IN ROOM WITH PT AT THE TIME OF RUN AND PT'S BEHAVIOR WAS UNCHANGED. TYLENOL WAS ADMINISTERED FOR C/O LEG PAIN. GARAY CATHETER IN PLACE , PATENT AND DRAINING CLEAR YELLOW URINE. PT TURNED AND REPOSITIONED, ORAL CARE PROVIDED Q2H. VSS. WILL CONTINUE TO MONITOR.
--- NOTE | 2020-03-04 05:00 | PC.NURSE ---
RIGHT RADIAL TRACELET DECREASED FROM 12 ML TO 10ML.
--- NOTE | 2020-03-04 05:15 | PC.NURSE ---
NO BLOODY DRAINAGE NOTED ON REASSESSMENT. DEFLATED AIR IN RIGHT RADIAL TRACELET TO 8 ML.
--- NOTE | 2020-03-04 05:30 | PC.NURSE ---
NO BLOODY DRAINAGE NOTED ON REASSESSMENT. DEFLATED AIR IN RIGHT RADIAL TRACELET TO 6 ML.
[2020-03-04 05:36] LABS: POC Glucose,Bedside 85 (70-110)
--- NOTE | 2020-03-04 05:45 | PC.NURSE ---
NO BLOODY DRAINAGE NOTED ON REASSESSMENT. DEFLATED AIR IN RIGHT RADIAL TRACELET TO 4 ML.
--- NOTE | 2020-03-04 06:00 | PC.NURSE ---
NO BLOODY DRAINAGE NOTED ON REASSESSMENT. DEFLATED AIR IN RIGHT RADIAL TRACELET TO 2 ML.
--- NOTE | 2020-03-04 06:15 | PC.NURSE ---
NO BLOODY DRAINAGE NOTED ON REASSESSMENT. DEFLATED AIR IN RIGHT RADIAL TRACELET TO 0 ML.
[2020-03-04 06:16] LABS: Basophils % 0.1 % (0.1-2.0); Eosinophils % 1.3 % (0.1-12.0); Lymphocytes # 0.7 K/mm3 (0.7-4.5); Lymphocytes % 36.4 % (10-50); Mean Corpuscular HGB Conc 34.1 g/dL (31.8-35.4); Mean Corpuscular Hemoglobin 32.4 pg (27.0-31.2); Mean Platelet Volume 8.8 fl (7.4-10.4); Monocytes # 0.1 K/mm3 (0.1-1.0); Monocytes % 5.2 % (1.7-9.3); Neutrophils # 1.1 K/mm3 (1.8-7.8); Neutrophils % 56.9 % (37.0-80.0); Platelet Count 125 K/mm3 (142-424); Red Blood Count 2.37 M/mm3 (4.60-6.20); Red Cell Distribution Width 14.8 % (11.5-17.5); White Blood Count 1.9 K/mm3 (4.8-10.8)
[2020-03-04 06:18] LABS: Chloride 107 mmol/L (98-107); Potassium 3.2 mmoL/L (3.5-5.1); Sodium 130 mmol/L (136-145)
[2020-03-04 06:21] LABS: Anion Gap 9.2 mEq/L (5-15); Blood Urea Nitrogen 3 mg/dl (9-20); Calcium 7.4 mg/dl (8.4-10.2); Carbon Dioxide 17 mmol/L (22.0-30.0); Creatinine Clearance Estimated 204 mL/min (50-200); Estimated Glomerular Filt Rate 177 ml/min (>60); GFR (African American) 214 ML/MIN (>60); Glucose 84 mg/dl (74-100)
--- NOTE | 2020-03-04 06:30 | PC.NURSE ---
NO BLOODY DRAINAGE NOTED ON REASSESSMENT. REMOVED RIGHT RADIAL TRACELET. RIGHT RADIAL PULSE +2. 2X2 GAUZE AND TEGADERM APPLIED, CDI. INTEGRILIN GTT RESTARTED AT THIS TIME.
[2020-03-04 06:33] LABS: Hematocrit 22.5 % (42.0-52.0); Hemoglobin 7.7 g/dL (14.1-18.0)
--- NOTE | 2020-03-04 08:18 | XR_ITS ---
PROCEDURE: XR CHEST PORTABLE CLINICAL HISTORY: increase rr Increased respiratory rate, shortness of air, cough COMPARISON: CR XR CHEST 2V from 08/30/2019 CR XR CHEST 2V from 02/29/2020 CR XR CHEST PORTABLE from 03/02/2020 FINDINGS: Mild cardiomegaly without failure. Bilateral lower lobe pneumonia and right upper lobe pneumonia is once again noted. This appears slightly worse on the right. No acute bony abnormalities. IMPRESSION: Bilateral pneumonia slightly worse on the right Dictated by: Doe Cervantes MD 03/04/2020 09:31 Doe Cervantes MD in [facility] 03/04/2020 09:31
--- NOTE | 2020-03-04 09:12 | HMH.ACPN2 ---
Internal Medicine - PN: Subj *Date: 03/04/20 *Time: 08:30 Interval history: a little more alert today. states no c/o. Exam Vital signs and Labs for Last 24 Hours: Temp Pulse Resp BP Pulse Ox 97.9 F 96 H 28 H 121/77 100 03/04/20 04:00 03/04/20 06:00 03/04/20 06:00 03/04/20 06:00 03/04/20 06:00 Laboratory Results - last 24 hr 03/03/20 10:08: POC Glucose 73 03/03/20 18:00: POC Glucose 75 03/03/20 20:24: POC Glucose 77 03/04/20 05:28: POC Glucose 85 03/04/20 05:35: WBC 1.9 L*, RBC 2.37 L, Hgb 7.7 L*, Hct 22.5 L*, MCV 95.0 H, MCH 32.4 H, MCHC 34.1, RDW 14.8, Plt Count 125 L, MPV 8.8, Neut % (Auto) 56.9, Lymph % (Auto) 36.4, [place] % (Auto) 5.2, Eos % (Auto) 1.3, Baso % (Auto) 0.1, Neut # (Auto) 1.1 L, Lymph # (Auto) 0.7, [place] # (Auto) 0.1, Eos # (Auto) 0.0, Baso # (Auto) 0.0 03/04/20 05:35: Sodium 130 L, Potassium 3.2 L, Chloride 107, Carbon Dioxide 17 L, Anion Gap 9.2, BUN 3 L, Creatinine 0.50 L D, Estimated Creat Clear 204, Estimated GFR 177, Est GFR ( Amer) 214 D, Glucose 84, Calcium 7.4 L I & O for Last 24 hours: Intake & Output 03/01/20 03/02/20 03/03/20 03/04/20 11:59 11:59 11:59 11:59 Intake Total 0 / 0 3772 / 3772 3277 / 3277 2686 / 2686 Output Total 1200 / 1200 1360 / 1360 2080 / 2080 2250 / 2250 Balance -1200 / -1200 2412 / 2412 1197 / 1197 436 / 436 Weight 175 lb 6 oz 177 lb 177 lb 2 oz 178 lb 5 oz Microbiology Reports for the Last 24 Hours: Microbiology 03/03/20 20:48 Sputum - Expectorated Sputum Gram Stain - Final - Constitutional no acute distress - *Routine HEENT Exam Head: Present: normocephalic Eye: Present: PERRL ENT: Present: mucous membranes moist - *Routine Neck Exam Present: supple. Absent: lymphadenopathy - *Routine Respiratory Exam Present: wheezes - *Routine Cardiovascular Exam Present: RRR - *Routine Abdominal Exam Present: soft, normoactive bowel sounds. Absent: tenderness - *Routine Extremities Exam Present: normal capillary refill. Absent: cyanosis, clubbing, edema - *Routine Skin Exam Present: warm. Absent: rash - *Routine Neurological Exam Present: alert states he is at [place] [facility] recheck h/h at 3- slow iv fluids - Routine Psychiatric Exam Present: normal affect Assessment and Plan (1) Hypokalemia Current visit: Yes Status: Acute Category: Medical Code(s): E87.6 - Hypokalemia (2) Contusion Current visit: Yes Status: Acute Category: Medical Code(s): T14.8XXA - Other injury of unspecified body region, initial encounter (3) Acute alcohol abuse Current visit: Yes Status: Chronic Category: Medical Code(s): F10.10 - Alcohol abuse, uncomplicated (4) Hyponatremia Current visit: Yes Status: Acute Category: Medical Code(s): E87.1 - Hypo-osmolality and hyponatremia (5) Weakness Current visit: Yes Status: Acute Category: Medical Code(s): R53.1 - Weakness (6) Alcoholism Current visit: No Status: Chronic Category: Medical Code(s): F10.20 - Alcohol dependence, uncomplicated (7) Tobacco use Current visit: No Status: Chronic Category: Social Hx Code(s): Z72.0 - Tobacco use (8) Hypomagnesemia Current visit: Yes Status: Acute Category: Medical Code(s): E83.42 - Hypomagnesemia - Assessment and plan all Dx Assessment and Plan for all problems:: rounded with dr mae all orders per dr mae
--- NOTE | 2020-03-04 09:28 | PC.NURSE ---
Pt out of step down at this time. Notified Tiffanie.
[2020-03-04 11:50] LABS: POC Glucose,Bedside 86 (70-110)
--- NOTE | 2020-03-04 15:01 | PC.NURSE ---
Addendum entered by Thalia Koenig RN 03/04/20 15:12: 1 mg Ativan given IV per MAR d/t pt being belligerent and agitated w/ staff. Original Note: Pt has been quite agitated this shift, requesting his mother and to go home. This nurse talker to pt's mother on phone and updated her on pt's status, states that she will be here later this afternoon. Explained to pt why he is at the hospital and oriented to situation. Pt is currently up to chair w/ bed alarm on. When transferring pt required assistance x2 d/t weakness. Pt has had poor intake this shift. Encouraged pt to drink fluids and periodically deep breathe and cough. Oral care has been performed Q2H as well as suctioning of mouth. Call noah w/in reach. No needs voiced at this time.
[2020-03-04 15:19] LABS: Basophils % 0.8 % (0.1-2.0); Eosinophils % 1.8 % (0.1-12.0); Hematocrit 25.8 % (42.0-52.0); Lymphocytes # 0.9 K/mm3 (0.7-4.5); Lymphocytes % 39.3 % (10-50); Mean Corpuscular Hemoglobin 31.6 pg (27.0-31.2); Mean Corpuscular Volume 93.1 fl (80-94); Mean Platelet Volume 7.6 fl (7.4-10.4); Monocytes # 0.1 K/mm3 (0.1-1.0); Monocytes % 4.5 % (1.7-9.3); Neutrophils # 1.2 K/mm3 (1.8-7.8); Neutrophils % 54.4 % (37.0-80.0); Platelet Count 143 K/mm3 (142-424); Red Blood Count 2.77 M/mm3 (4.60-6.20); Red Cell Distribution Width 14.8 % (11.5-17.5); White Blood Count 2.2 K/mm3 (4.8-10.8)
[2020-03-04 15:22] LABS: Hemoglobin 8.8 g/dL (14.1-18.0)
[2020-03-04 17:15] LABS: POC Glucose,Bedside 95 (70-110)
[2020-03-04 20:54] LABS: POC Glucose,Bedside 90 (70-110)
--- NOTE | 2020-03-04 20:59 | PC.NURSE ---
Pt's room air sat at rest = 98%
[2020-03-05] VITALS (7 sets, daily range): BP systolic 120–168; BP diastolic 71–90; PULSE 84–105; RESP 19–30; TEMP 36.3–36.9; O2SAT 95–100; BMI 24.0
[2020-03-05 05:28] LABS: POC Glucose,Bedside 88 (70-110)
--- NOTE | 2020-03-05 05:37 | PC.NURSE ---
shift summary, pt was anxious at beginning of shift, stated he wanted to go smoke, offered to get a nicotine patch for the patient and patient stated that those patches don't do no good, treated pt's anxiety per MAR, pt attempted to get out of bed twice to use urinal, had one episode of incontinence of urine in the bed, pt bathed and linens changed, has rested on and off the rest of shift, remains on room air, O2 sats from 95-100%
[2020-03-05 06:35] LABS: Chloride 106 mmol/L (98-107); Potassium 3.5 mmoL/L (3.5-5.1); Sodium 132 mmol/L (136-145)
[2020-03-05 06:38] LABS: Anion Gap 12.5 mEq/L (5-15); Blood Urea Nitrogen 2 mg/dl (9-20); Calcium 7.9 mg/dl (8.4-10.2); Carbon Dioxide 17 mmol/L (22.0-30.0); Creatinine Clearance Estimated 208 mL/min (50-200); Estimated Glomerular Filt Rate 177 ml/min (>60); GFR (African American) 214 ML/MIN (>60); Glucose 82 mg/dl (74-100)
[2020-03-05 06:45] LABS: Basophils % 0.7 % (0.1-2.0); Eosinophils # 0.1 K/mm3 (0.0-0.4); Hematocrit 26.3 % (42.0-52.0); Hemoglobin 8.6 g/dL (14.1-18.0); Lymphocytes # 0.7 K/mm3 (0.7-4.5); Lymphocytes % 43.4 % (10-50); Mean Corpuscular HGB Conc 32.9 g/dL (31.8-35.4); Mean Corpuscular Hemoglobin 31.9 pg (27.0-31.2); Mean Corpuscular Volume 97.1 fl (80-94); Mean Platelet Volume 8.4 fl (7.4-10.4); Monocytes # 0.1 K/mm3 (0.1-1.0); Monocytes % 5.2 % (1.7-9.3); Neutrophils # 0.8 K/mm3 (1.8-7.8); Neutrophils % 47.8 % (37.0-80.0); Platelet Count 137 K/mm3 (142-424); Red Cell Distribution Width 15.2 % (11.5-17.5); White Blood Count 1.7 K/mm3 (4.8-10.8)
--- NOTE | 2020-03-05 08:47 | HMH.ACPN2 ---
Internal Medicine - PN: Subj *Date: 03/05/20 *Time: 08:48 Interval history: Patient laying in bed more alert today. Exam Vital signs and Labs for Last 24 Hours: Temp Pulse Resp BP Pulse Ox 97.4 F L 99 H 19 120/71 99 03/05/20 07:59 03/05/20 07:59 03/05/20 07:59 03/05/20 07:59 03/05/20 07:59 Laboratory Results - last 24 hr 03/04/20 11:44: POC Glucose 86 03/04/20 15:10: WBC 2.2 L, RBC 2.77 L, Hgb 8.8 L D, Hct 25.8 L, MCV 93.1, MCH 31.6 H, MCHC 34.0, RDW 14.8, Plt Count 143, MPV 7.6, Neut % (Auto) 54.4, Lymph % (Auto) 39.3, [place] % (Auto) 4.5, Eos % (Auto) 1.8, Baso % (Auto) 0.8, Neut # (Auto) 1.2 L, Lymph # (Auto) 0.9, [place] # (Auto) 0.1, Eos # (Auto) 0.0, Baso # (Auto) 0.0 03/04/20 16:21: POC Glucose 95 03/04/20 20:23: POC Glucose 90 03/05/20 05:15: POC Glucose 88 03/05/20 05:50: WBC 1.7 L*, RBC 2.70 L, Hgb 8.6 L, Hct 26.3 L, MCV 97.1 H, MCH 31.9 H, MCHC 32.9, RDW 15.2, Plt Count 137 L, MPV 8.4, Neut % (Auto) 47.8, Lymph % (Auto) 43.4, [place] % (Auto) 5.2, Eos % (Auto) 3.0, Baso % (Auto) 0.7, Neut # (Auto) 0.8 L*, Lymph # (Auto) 0.7, [place] # (Auto) 0.1, Eos # (Auto) 0.1, Baso # (Auto) 0.0 03/05/20 05:50: Sodium 132 L, Potassium 3.5, Chloride 106, Carbon Dioxide 17 L, Anion Gap 12.5, BUN 2 L D, Creatinine 0.50 L, Estimated Creat Clear 208, Estimated GFR 177, Est GFR ( Amer) 214, Glucose 82, Calcium 7.9 L I & O for Last 24 hours: Intake & Output 03/02/20 03/03/20 03/04/20 03/05/20 11:59 11:59 11:59 11:59 Intake Total 3772 / 3772 3277 / 3277 2686 / 2686 3649 / 3649 Output Total 1360 / 1360 2080 / 2080 2250 / 2250 520 / 520 Balance 2412 / 2412 1197 / 1197 436 / 436 3129 / 3129 Weight 177 lb 177 lb 2 oz 178 lb 5 oz 181 lb 2 oz Microbiology Reports for the Last 24 Hours: Microbiology 03/03/20 20:48 Sputum - Expectorated Sputum Gram Stain - Final 03/03/20 20:48 Sputum - Expectorated Sputum Sputum Culture - Preliminary - Constitutional no acute distress - *Routine HEENT Exam Head: Present: normocephalic Eye: Present: PERRL ENT: Present: mucous membranes moist - *Routine Neck Exam Present: supple. Absent: lymphadenopathy - *Routine Respiratory Exam Present: wheezes, diminished air movement - *Routine Cardiovascular Exam Present: RRR - *Routine Abdominal Exam Present: soft, normoactive bowel sounds. Absent: tenderness - *Routine Extremities Exam Present: normal capillary refill. Absent: cyanosis, clubbing, edema - *Routine Skin Exam Present: warm. Absent: rash - *Routine Neurological Exam Present: alert, oriented X3 - Routine Psychiatric Exam Present: normal affect Assessment and Plan (1) Hypokalemia Current visit: Yes Status: Acute Category: Medical Code(s): E87.6 - Hypokalemia (2) Contusion Current visit: Yes Status: Acute Category: Medical Code(s): T14.8XXA - Other injury of unspecified body region, initial encounter (3) Acute alcohol abuse Current visit: Yes Status: Chronic Category: Medical Code(s): F10.10 - Alcohol abuse, uncomplicated (4) Hyponatremia Current visit: Yes Status: Acute Category: Medical Code(s): E87.1 - Hypo-osmolality and hyponatremia (5) Weakness Current visit: Yes Status: Acute Category: Medical Code(s): R53.1 - Weakness (6) Alcoholism Current visit: No Status: Chronic Category: Medical Code(s): F10.20 - Alcohol dependence, uncomplicated (7) Tobacco use Current visit: No Status: Chronic Category: Social Hx Code(s): Z72.0 - Tobacco use (8) Hypomagnesemia Current visit: Yes Status: Acute Category: Medical Code(s): E83.42 - Hypomagnesemia - Assessment and plan all Dx Assessment and Plan for all problems:: rounded with dr mae all orders per dr mae breathing treatments steroids out of bed for meals.
--- NOTE | 2020-03-05 10:30 | P.PN_ITS ---
Internal Medicine - PN: Subj *Date: 03/05/20 *Time: 10:30 Exam Vital signs and Labs for Last 24 Hours: Temp Pulse Resp BP Pulse Ox 97.4 F L 99 H 19 120/71 99 03/05/20 07:59 03/05/20 07:59 03/05/20 08:00 03/05/20 07:59 03/05/20 08:00 Laboratory Results - last 24 hr 03/04/20 11:44: POC Glucose 86 03/04/20 15:10: WBC 2.2 L, RBC 2.77 L, Hgb 8.8 L D, Hct 25.8 L, MCV 93.1, MCH 31.6 H, MCHC 34.0, RDW 14.8, Plt Count 143, MPV 7.6, Neut % (Auto) 54.4, Lymph % (Auto) 39.3, [place] % (Auto) 4.5, Eos % (Auto) 1.8, Baso % (Auto) 0.8, Neut # (Auto) 1.2 L, Lymph # (Auto) 0.9, [place] # (Auto) 0.1, Eos # (Auto) 0.0, Baso # (Auto) 0.0 03/04/20 16:21: POC Glucose 95 03/04/20 20:23: POC Glucose 90 03/05/20 05:15: POC Glucose 88 03/05/20 05:50: WBC 1.7 L*, RBC 2.70 L, Hgb 8.6 L, Hct 26.3 L, MCV 97.1 H, MCH 31.9 H, MCHC 32.9, RDW 15.2, Plt Count 137 L, MPV 8.4, Neut % (Auto) 47.8, Lymph % (Auto) 43.4, [place] % (Auto) 5.2, Eos % (Auto) 3.0, Baso % (Auto) 0.7, Neut # (Auto) 0.8 L*, Lymph # (Auto) 0.7, [place] # (Auto) 0.1, Eos # (Auto) 0.1, Baso # (Auto) 0.0 03/05/20 05:50: Sodium 132 L, Potassium 3.5, Chloride 106, Carbon Dioxide 17 L, Anion Gap 12.5, BUN 2 L D, Creatinine 0.50 L, Estimated Creat Clear 208, Estimated GFR 177, Est GFR ( Amer) 214, Glucose 82, Calcium 7.9 L I & O for Last 24 hours: Intake & Output 03/02/20 03/03/20 03/04/20 03/05/20 23:59 23:59 23:59 23:59 Intake Total 3637 / 3637 4468 / 4468 4114 / 4114 1030 / 1030 Output Total 2280 / 2280 2350 / 2350 1300 / 1300 220 / 220 Balance 1357 / 1357 2118 / 2118 2814 / 2814 810 / 810 Weight 80.286 kg 80.343 kg 80.881 kg 82.157 kg Microbiology Reports for the Last 24 Hours: Microbiology 03/03/20 20:48 Sputum - Expectorated Sputum Gram Stain - Final 03/03/20 20:48 Sputum - Expectorated Sputum Sputum Culture - Preliminary Assessment and Plan (1) Hypokalemia Current visit: Yes Status: Acute Category: Medical Code(s): E87.6 - Hypokalemia (2) Contusion Current visit: Yes Status: Acute Category: Medical Code(s): T14.8XXA - Other injury of unspecified body region, initial encounter (3) Acute alcohol abuse Current visit: Yes Status: Chronic Category: Medical Code(s): F10.10 - Alcohol abuse, uncomplicated (4) Hyponatremia Current visit: Yes Status: Acute Category: Medical Code(s): E87.1 - Hypo- osmolality and hyponatremia (5) Weakness Current visit: Yes Status: Acute Category: Medical Code(s): R53.1 - Weakness (6) Alcoholism Current visit: No Status: Chronic Category: Medical Code(s): F10.20 - Alcohol dependence, uncomplicated (7) Tobacco use Current visit: No Status: Chronic Category: Social Hx Code(s): Z72.0 - Tobacco use (8) Hypomagnesemia Current visit: Yes Status: Acute Category: Medical Code(s): E83.42 - Hypomagnesemia The patient's infection will respond to the chosen ABx?: Yes Is the patient receiving the right drug, dose, and route?: Yes Could a more targeted ABx be ordered?: No (AWAITING SPUTUM CULTURE)
[2020-03-05 10:59] LABS: POC Glucose,Bedside 98 (70-110)
[2020-03-05 15:38] LABS: POC Glucose,Bedside 119 (70-110)
--- NOTE | 2020-03-05 18:05 | PC.NURSE ---
patient lying in bed with safety measures in place. patient eating dinner. ciwa score 0. patient has not had any issues this shift.
--- NOTE | 2020-03-05 19:08 | PC.NURSE ---
report given to nupur
[2020-03-05 21:07] LABS: POC Glucose,Bedside 129 (70-110)
[2020-03-06] VITALS: BP 139/78; PULSE 100; PULSE 99; RESP 18; TEMP 36.7; O2SAT 100
[2020-03-06 04:00] VITALS: BP 123/80; PULSE 100; PULSE 101; RESP 20; TEMP 36.6; O2SAT 100
[2020-03-06 05:00] VITALS: BMI 24.4
--- NOTE | 2020-03-06 05:02 | PC.NURSE ---
Pt has been pleasant this shift, but has not slept much. Q4H CIWA scores have remained at 0 with the exception of 399 which was 1 . Pt was complaining of a mild BAILEY, PRN acetaminophen administered per AUG. Upon reassessment, pt's lungs have inspiratory and expiratory rhonchi along with expiratory wheezing noted as well t/o. Pt has used the incentive spirometer multiple times this shift appropriately. Call light is within reach, seizure pads remain in place. No other acute changes at this time.
[2020-03-06 06:37] LABS: Basophils % 0.5 % (0.1-2.0); Eosinophils % 0.7 % (0.1-12.0); Hematocrit 36.9 % (42.0-52.0); Hemoglobin 12.1 g/dL (14.1-18.0); Lymphocytes # 0.4 K/mm3 (0.7-4.5); Lymphocytes % 29.3 % (10-50); Mean Corpuscular HGB Conc 32.8 g/dL (31.8-35.4); Mean Corpuscular Hemoglobin 31.3 pg (27.0-31.2); Mean Corpuscular Volume 95.6 fl (80-94); Mean Platelet Volume 8.6 fl (7.4-10.4); Neutrophils # 0.9 K/mm3 (1.8-7.8); Neutrophils % 66.5 % (37.0-80.0); Platelet Count 103 K/mm3 (142-424); Red Blood Count 3.86 M/mm3 (4.60-6.20); Red Cell Distribution Width 15.4 % (11.5-17.5); White Blood Count 1.4 K/mm3 (4.8-10.8)
[2020-03-06 06:40] LABS: Chloride 106 mmol/L (98-107); Potassium 4.7 mmoL/L (3.5-5.1); Sodium 131 mmol/L (136-145)
[2020-03-06 06:40] LABS: POC Glucose,Bedside 118 (70-110)
[2020-03-06 06:43] LABS: Anion Gap 13.7 mEq/L (5-15); Blood Urea Nitrogen 4 mg/dl (9-20); Calcium 8.1 mg/dl (8.4-10.2); Carbon Dioxide 16 mmol/L (22.0-30.0); Creatinine Clearance Estimated 264 mL/min (50-200); Estimated Glomerular Filt Rate 229 ml/min (>60); GFR (African American) 277 ML/MIN (>60); Glucose 120 mg/dl (74-100)
[2020-03-06 08:00] VITALS: BP 131/77; PULSE 102; PULSE 104; RESP 19; TEMP 36.5; O2SAT 94; O2SAT 97
--- NOTE | 2020-03-06 11:15 | PC.NURSE ---
PT BECAME BELLIGERENT, PULLED OUT IV AND STATED HE WAS LEAVING AMA. DR CARLSON NOTIFIED WHILE ROUNDING AND DECIDED TO DISCHARGE PT. PT REFUSED FSBS
[2020-03-06 11:19] VITALS: BP 121/80; PULSE 102; RESP 18; TEMP 36.5; O2SAT 97
--- NOTE | 2020-03-06 11:33 | HMH.DCSUM ---
General - General Admission date:: 03/01/20 Discharge date: 03/06/20 HPI HPI: HPI narrative: 49-year-old male with history of hypertension hyperlipidemia presents the emergency department with weakness, and pain in his bilateral lower extremities. Mother states he has had a few falls at home recently, and has a bruise on his right hip. Mother gives a lot of the history for the patient, and states that he has had a rash pop up on his bilateral lower extremities over the last few days. She states he has not felt well and has had some weakness and pain in his legs over the last couple of weeks but the rash is newer. She also states he is had a cough. No fever. No history of symptoms like this prior. He denies any vertigo or dizziness. He denies any chest pain or back pain. He denies any trouble breathing. His main complaint is pain and weakness in his legs. He has not taken anything for this, denies anything makes it better or worse. No history of blood clots in the past. underwent ct brain FINDINGS: No midline shift, mass effect, intracranial hemorrhage, hydrocephalus, or extra-axial fluid collection is evident. There is generalized atrophy with hypoattenuation of the periventricular white matter consistent with microangiopathic changes. The calvarium has an unremarkable appearance. No mastoid effusion. There is moderate mucosal thickening of the right maxillary sinus and mild mucosal thickening of the ethmoid sinuses. Medial right maxillary sinus osteotomy noted. There bubbly secretions in the nasopharynx and there is minimal mucosal thickening of the frontal sinuses. IMPRESSION: 1. No acute intracranial findings. 2. Sinus disease History of ETOH. Few falls at home with eccymosis right hip. pelvis xray neg cxr neg hypokalemic and hyponatremic on admission serax given lytes being replaced Hospital Course Hospital Course: The patient was admitted and treated for alcohol withdrawal and anxiety. His mentation gradually improved, back to his baseline. Patient did have some wheezing and congestion, chest x-ray suggested a pneumonia, worse on the right. He was treated with IV Solu-Medrol and antibiotics. He had market electrolyte abnormalities which corrected. The day of his discharge he is alert, lucid and voicing that he is ready to go home. Follows Dr. Blackman at the clinic. Objective Vital signs: Temp Pulse Resp BP Pulse Ox 97.7 F 102 H 18 121/80 97 03/06/20 11:19 03/06/20 11:19 03/06/20 11:19 03/06/20 11:19 03/06/20 11:19 no acute distress, average body habitus - *Routine HEENT Exam Head: Present: normocephalic Eye: Present: EOMI, PERRL ENT: Present: mucous membranes moist - *Routine Neck Exam Present: supple - *Routine Respiratory Exam Present: decreased breath sounds, CTA bilaterally. Absent: accessory muscle use - *Routine Cardiovascular Exam Present: RRR - *Routine Abdominal Exam Present: soft, normoactive bowel sounds. Absent: tenderness - *Routine Extremities Exam Absent: cyanosis, clubbing, edema Comments: eccymosis right hip - *Routine Skin Exam Present: warm. Absent: jaundice, rash - *Routine Neurological Exam Present: alert, oriented X3, moving all extremities, normal tone, vision grossly intact, hearing grossly intact, normal speech. Absent: facial asymmetry - Routine Psychiatric Exam Present: anxious Results Labs on day of discharge: Labs from last 24 hours 03/06/20 03/06/20 03/06/20 06:17 06:15 06:15 WBC 1.4 L* RBC 3.86 L D Hgb 12.1 L Hct 36.9 L MCV 95.6 H MCH 31.3 H MCHC 32.8 RDW 15.4 Plt Count 103 L MPV 8.6 Neut % (Auto) 66.5 Lymph % (Auto) 29.3 [place] % (Auto) 3.0 Eos % (Auto) 0.7 Baso % (Auto) 0.5 Neut # (Auto) 0.9 L* Lymph # (Auto) 0.4 L [place] # (Auto) 0.0 L Eos # (Auto) 0.0 Baso # (Auto) 0.0 Sodium 131 L Potassium 4.7 D Chlor[place]
== END 2020-03-06 12:40 | disposition home or self-care (01) | DRG 896 ==
LOC: ER 20:13 → 2ND 23:05
PROVIDERS: Nurse Practitioner Family; Admitting Provider Family Medicine; Emergency Provider Emergency Medicine; PCP Emergency Medicine; Visit Provider Family Medicine
DX: F10.239 Alcohol dependence with withdrawal, unspecified (principal); J18.9 Pneumonia, unspecified organism; E87.1 Hypo-osmolality and hyponatremia; F10.229 Alcohol dependence with intoxication, unspecified; Y90.5 Blood alcohol level of 100-119 mg/100 ml; E87.6 Hypokalemia; Z72.0 Tobacco use; Z91.81 History of falling
CPT/HCPCS: 36415; 70450; 71045; 71046; 72170; 80048; 80053; 81001; 82140; 82803; 82962; 83735; 84100; 85025; 85610; 85730; 86328; 87070; 87205; 93005; 94640; 96365; 96366; 96367; 96375; 99284

== ENCOUNTER → 2020-06-22 16:51 | Outpatient (CLI) | payer OTHER, SELFPAY ==
--- NOTE | 2020-06-22 16:52 | MR_ITS ---
PROCEDURE: MR LUMBAR SPINE WO CON (3D MRI myelogram volume image set included) Referring Doctor: Alvino Gresham Patient Age:49Y CLINICAL INDICATION: low back pain Chronic low back pain since fell out of a barn many years ago. Patient denies recent trauma or new injury. COMPARISON: No exams were available for comparison TECHNIQUE: Standard multiplanar multiecho sequences are performed without contrast. 3-D MIP and myelographic images are also rendered and reviewed 3D MRI myelogram volume image set included FINDINGS: The lumbar vertebral bodies are intact and the disc heights are well maintained throughout the lumbar spine.. On only noting minor anterior marginal osteophyte formation at L2/3 with a developing small Schmorl's node inferior anterior aspect of L2 vertebral body at midline-with minor reactive bone changes about this area. Unimpressive but noted L5/S1 disc of hydration height intact; only slight loss disc hydration.. Scant negligible central disc bulge Moderate facet hypertrophy mildly encroach upon posterior aspect neural foramen on bilaterally.. L4/5. Intervertebral disc intact with only slight loss of disc hydration. Scant disc bulge most evident yielding mild encroachment upon the right foramen. Congenital modest underlying AP dimension of neural foramen suggested and the foramen are further narrowed by moderate facet hypertrophy., Also mild ligament flavum hypertrophy right more so than left. These features only slightly taper and only slightly narrow the spinal canal-but no significant central canal spinal stenosis as of yet L3/4 disc intact neural foramen unremarkable. L2/3, L1/2, T12/ L1 disc spaces intact well-hydrated and neural foramen widely patent. Unremarkable. Conus ends appropriately at L1/2 level. A aorta normal caliber no aneurysm. . There is mild diffuse fatty signal throughout filum terminalis, but is not enlarged.-basically normal variant 3D MR myelogram image set of reveals no prominent findings but there is only scant barely evident tapering thecal sac L4/5 most evident to the right due to features noted above IMPRESSION: 1...No disc herniation. No spinal stenosis, no prominent findings Minor observations//minimal degenerative changes. 2..Patient has modest AP dimension of neural foramen bilaterally at L4/5 and L5/S1, with foraminal additionally narrowed due to the minimal degenerative features noted below: -L4/5.: Moderate facet and ligament flavum hypertrophy-very slightly indent and taper thecal sac but with no significant central spinal stenosis as of yet.. -L5/S1: Moderate facet hypertrophy and scant central bulge Again the moderate facet hypertrophy and features noted above, yield relative narrowed appearance of neural foramen bilaterally at L4/5 and L5/S1 Dictated by: Moise Price MD 06/29/2020 11:01 Moise Price MD in [place] 06/29/2020 11:01
== END ==
PROVIDERS: PCP Family Medicine; Visit Provider Family Medicine
DX: G89.29 Other chronic pain (principal); M54.9 Dorsalgia, unspecified; M54.5 Low back pain
CPT/HCPCS: 72148; 76376

== ENCOUNTER 2020-09-28 21:33 | Emergency (ER) | payer OTHER, SELFPAY ==
[2020-09-28 21:33] VITALS: BP 118/86; PULSE 88; RESP 17; TEMP 36.8; O2SAT 99; BMI 28.8
[2020-09-28 21:40] VITALS: BP 120/81; PULSE 71; RESP 17; TEMP 37; O2SAT 99
--- NOTE | 2020-09-28 22:03 | PC.NURSE ---
Pt left without being seen, he did not want to stay any longer, Pt spoke with Brick Cleaner and left
== END 2020-09-28 21:46 | disposition left against medical advice (07) ==
PROVIDERS: Emergency Provider Emergency Medicine; PCP Family Medicine
DX: Z53.21 Procedure and treatment not carried out due to patient leaving prior to being seen by health care provider (principal)
CPT/HCPCS: 99211

== ENCOUNTER 2020-10-07 18:06 | Emergency (ER) | payer OTHER, SELFPAY ==
[2020-10-07 18:13] VITALS: BP 132/88; PULSE 84; RESP 20; TEMP 36.4; O2SAT 98; BMI 20.5
--- NOTE | 2020-10-07 18:17 | XR_ITS ---
PROCEDURE: XR CHEST PORTABLE CLINICAL HISTORY: SOB COMPARISON: CR XR CHEST 2V from 02/29/2020 CR XR CHEST PORTABLE from 03/02/2020 CR XR CHEST PORTABLE from 03/04/2020 FINDINGS: The cardiomediastinal silhouette and pulmonary vascularity are within normal limits. The lungs are clear without infiltrates, suspicious nodules, or pleural effusions. There is an old right 7th rib fracture. IMPRESSION: No change with no acute finding Dictated by: Doe Cervantes MD 10/07/2020 21:35 Doe Cervantes MD in [place] 10/07/2020 21:35
--- NOTE | 2020-10-07 18:24 | ECG_ITS ---
APPROVED REPORT Exam: Resting ECG HR:85 bpm ECG Measurements Heart Rate 85 AXES MT 224 P 60 QRSd 94 QRS 37 QT 394 T 47 QTc 468 Conclusion Sinus rhythm with 1st degree AV block Otherwise normal ECG Electronically signed by : Tenzin Luna, 10/10/2020 07:32:58
--- NOTE | 2020-10-07 18:32 | HMH.EDGENADL ---
ED Disposition Clinical Impression: Shortness of breath, Hypokalemia Disposition: Left Against Medical Advice Condition on Discharge: Good Referrals: PCP,No [Primary Care Provider] - - Critical Care Critical Care Time: No Attestation: On 10/07/20, the high probability of a clinically significant, sudden or life threatening deterioration of the following system(s) required my full and direct attention, intervention and personal management. The time I documented below is in addition to time spent performing reported procedures but includes the following listed in this critical care notation. Medical Decision Making - Medical Records Medical records reviewed: Yes: I reviewed the patient's medical records. - Raffaele Inquiry Pt receiving controlled substance: No Vital Signs: 10/07/20 18:13 10/07/20 19:22 Temperature 97.6 F 0 F L Temperature Source Oral Pulse Rate 0 L Pulse Rate [Radial] 84 Respiratory Rate 20 0 L Blood Pressure 000/00 L Blood Pressure [Right Arm] 132/88 Blood Pressure Mean [Right Arm] 102 Blood Pressure Position [Right Arm] Sitting 02 Sat by Pulse Oximetry 98 Oxygen Delivery Method Room Air Room Air - Lab Data Lab Results 10/07/20 18:33: WBC 3.8 L, RBC 4.90, Hgb 15.8, Hct 46.1, MCV 94.2 H, MCH 32.3 H, MCHC 34.3, RDW 15.0, Plt Count 196, MPV 7.4, Neut % (Auto) 39.0, Lymph % (Auto) 53.1 H, [place] % (Auto) 5.8, Eos % (Auto) 1.2, Baso % (Auto) 0.9, Neut # (Auto) 1.5 L, Lymph # (Auto) 2.0, [place] # (Auto) 0.2, Eos # (Auto) 0.1, Baso # (Auto) 0.0, Total Counted 100, Neutrophils % (Manual) 41 L, Lymphocytes % (Manual) 53 H, Monocytes % (Manual) 5, Eosinophils % (Manual) 1, Platelet Estimate Normal, RBC Morphology Normal 10/07/20 18:33: Sodium 137, Potassium 3.1 L, Chloride 96 L, Carbon Dioxide 25, Anion Gap 19.1 H, BUN 2 L, Creatinine 0.70, Estimated Creat Clear 130, Estimated GFR 119, Est GFR ( Amer) 144, Glucose 124 H, Calcium 9.5, Troponin I < 0.01 10/07/20 18:33: Plasma/Serum Alcohol 269 H 10/07/20 18:33: Magnesium 2.2 10/07/20 18:33: D-Dimer 0.81 H Result diagrams: 10/07/20 18:33 10/07/20 18:33 Orders (Tests/Meds): ORDERS Category Date Time Status CT angio chest Stat Cat Scan 10/07/20 19:12 Ordered XR chest portable Stat Exams 10/07/20 18:17 Taken Troponin I Q3H Lab 10/07/20 21:30 Ordered Troponin I Q3H Lab 10/08/20 00:30 Ordered Medical Decision Narrative: 50-year-old gentleman presents with shortness of air. He is in no acute distress nontoxic-appearing sitting comfortably in the bed. He is hemodynamically stable. He is not tachypneic if anything he appears to be intoxicated. Pulmonary embolism less likely, D-dimer assessed. Aortic dissection unlikely as his pneumothorax chest x-ray has been ordered. Myocardial infarction unlikely, EKG negative troponins ordered as well. D-dimer was elevated, CTA chest was ordered. Potassium replaced. Patient decided to leave AGAINST MEDICAL ADVICE. He is have capacity to make decisions even though his alcohol level was elevated. I recommended that he be taken home by his mom. He is adamant about not getting a further work-up at this time General Adult HPI - General Chief complaint: Shortness of Breath/Dyspnea Stated complaint: SOA Time Seen by Provider: 10/07/20 18:10 Mode of Arrival: EMS Limitations: No Limitations Description of Symptoms (Recalled from ER Triage Doc. by RN): TO ED PER SQUAD WITH C/O SOB STARTING YESTERDAY PT DENIES FEVER, CHILLS, NAUSEA, VOMITING, CHEST PAIN. - History of Present Illness HPI narrative: With history of alcohol abuse presents with shortness of air and decreased breath intakes. He had denies fever nausea vomiting abdominal pain. Apparently he has had worsening shortness of air for the last few days. No chest pain or headaches. He daily drinks alcohol. Onset (ago): day(s) (3) Severity: mild Consistency: intermittent Relieving factors: rest Exacerbating factors: movement
[2020-10-07 18:41] LABS: Basophils % 0.9 % (0.1-2.0); Eosinophils # 0.1 K/mm3 (0.0-0.4); Eosinophils % 1.2 % (0.1-12.0); Hematocrit 46.1 % (42.0-52.0); Hemoglobin 15.8 g/dL (14.1-18.0); Lymphocytes % 53.1 % (10-50); Mean Corpuscular HGB Conc 34.3 g/dL (31.8-35.4); Mean Corpuscular Hemoglobin 32.3 pg (27.0-31.2); Mean Corpuscular Volume 94.2 fl (80-94); Mean Platelet Volume 7.4 fl (7.4-10.4); Monocytes # 0.2 K/mm3 (0.1-1.0); Monocytes % 5.8 % (1.7-9.3); Neutrophils # 1.5 K/mm3 (1.8-7.8); Platelet Count 196 K/mm3 (142-424); White Blood Count 3.8 K/mm3 (4.8-10.8)
[2020-10-07 18:49] LABS: Chloride 96 mmol/L (98-107); Sodium 137 mmol/L (136-145)
[2020-10-07 18:50] LABS: Potassium 3.1 mmoL/L (3.5-5.1)
[2020-10-07 18:51] LABS: MANUAL DIFFERENTIAL MANUAL DIFFERENTIAL (MANUAL DIFF)
[2020-10-07 18:52] LABS: Blood Urea Nitrogen 2 mg/dl (9-20); Creatinine Clearance Estimated 130 mL/min (50-200); Estimated Glomerular Filt Rate 119 ml/min (>60); GFR (African American) 144 ML/MIN (>60); Magnesium 2.2 mg/dl (1.6-2.3)
[2020-10-07 18:53] LABS: Anion Gap 19.1 mEq/L (5-15); Calcium 9.5 mg/dl (8.4-10.2); Carbon Dioxide 25 mmol/L (22.0-30.0); Ethyl Alcohol 269 mg/dl (0-10); Glucose 124 mg/dl (74-100)
[2020-10-07 18:57] LABS: D-Dimer 0.81 ug/mL (0.0-0.5)
[2020-10-07 19:01] LABS: Eosinophils % 1 % (0-3); Lymphocytes % 53 % (10-50); Monocytes % 5 % (2-9); Neutrophils % 41 % (42-76); Total Cells Counted 100
[2020-10-07 19:02] LABS: Platelet Estimate Normal; RBC Morphology Normal
[2020-10-07 19:07] LABS: Troponin I < 0.01 ng/ml (0.00-0.034)
[2020-10-07 19:22] VITALS: BP 000/00; PULSE 0; RESP 0; TEMP -17.7; TEMP 0; O2SAT 0
--- NOTE | 2020-10-07 19:24 | PC.NURSE ---
Pt signed out AMA, the dangers of leaving was explained by Lindsay Stevens RN he refused DC Vitals, pt left with family
== END 2020-10-07 19:28 | disposition left against medical advice (07) ==
PROVIDERS: Emergency Provider Emergency Medicine
DX: R06.02 Shortness of breath (principal); E87.6 Hypokalemia; K21.9 Gastro-esophageal reflux disease without esophagitis; J44.9 Chronic obstructive pulmonary disease, unspecified; F17.210 Nicotine dependence, cigarettes, uncomplicated; F10.10 Alcohol abuse, uncomplicated; Z88.5 Allergy status to narcotic agent; Z79.899 Other long term (current) drug therapy
CPT/HCPCS: 71045; 80048; 83735; 84484; 85007; 85025; 85378; 93005; 99282

== ENCOUNTER 2020-11-14 22:42 | Emergency (ER) | payer OTHER, SELFPAY ==
[2020-11-14 22:36] VITALS: BP 109/71; PULSE 106; RESP 21; TEMP 36.9; O2SAT 99; BMI 20.3
[2020-11-14 22:43] VITALS: BMI 22.1
--- NOTE | 2020-11-14 22:43 | ECG_ITS ---
APPROVED REPORT Exam: Resting ECG HR:107 bpm ECG Measurements Heart Rate 107 AXES RI 206 P 56 QRSd 90 QRS -5 QT 336 T 48 QTc 448 Conclusion Sinus tachycardia Possible Left atrial enlargement Borderline ECG Electronically signed by : Tenzin Luna, 11/20/2020 07:40:24
--- NOTE | 2020-11-14 22:43 | XR_ITS ---
PROCEDURE INFORMATION: Exam: XR Chest Exam date and time: 11/14/2020 10:43 PM Age: 50 years old Clinical indication: Smoker's cough; Patient HX: Productive cough, throat hoarseness for 3 weeks, smoker; Additional info: Chest pain TECHNIQUE: Imaging protocol: XR of the chest. Views: 2 views. COMPARISON: CR XR CHEST PORTABLE 10/07/2020 6:55 PM FINDINGS: Lungs: Clear. No consolidation. Pleural spaces: Unremarkable. No pleural effusion. No pneumothorax. Heart/Mediastinum: Unremarkable. No cardiomegaly. Bones/joints: Chronic healed right rib fractures. IMPRESSION: No acute findings.
--- NOTE | 2020-11-14 22:45 | CT_ITS ---
PROCEDURE INFORMATION: Exam: CT Neck With Contrast Exam date and time: 11/14/2020 10:45 PM Age: 50 years old Clinical indication: Patient HX: Hoarseness for 3 weeks, smoker; Additional info: Hoarseness x 3 weeks TECHNIQUE: Imaging protocol: Computed tomography images of the neck with contrast. Radiation optimization: All CT scans at this facility use at least one of these dose optimization techniques: automated exposure control; mA and/or kV adjustment per patient size (includes targeted exams where dose is matched to clinical indication); or iterative reconstruction. Contrast material: ISOVUE; Contrast volume: 75 ml; Contrast route: IV; COMPARISON: [facility] CT cervical spine wo con 01/19/2019 3:12 AM FINDINGS: Paranasal sinuses: There is near complete opacification of both maxillary sinuses. Fluid opacification of the ethmoid air cells. Nasopharynx: Unremarkable. Oropharynx: Unremarkable. No significant tonsillar enlargement. Hypopharynx: Unremarkable. Larynx: There is irregular nodular thickening of both vocal cords, worse on the left. No significant airway stenosis. Trace fluid in the laryngeal ventricles. Retropharyngeal space: Unremarkable. Submandibular/Parotid glands: Normal. Glands are normal in size. Thyroid: Normal. No enlarged or calcified nodules. Lymph nodes: Unremarkable. No lymphadenopathy. Trachea: Visualized trachea is unremarkable. Lungs: Unremarkable as visualized. Bones/joints: Unremarkable. No acute fracture. Soft tissues: Unremarkable. No significant soft tissue swelling. IMPRESSION: 1. Irregular thickening and nodularity of the vocal cords, worse on the left. Findings may be inflammatory or neoplastic. Correlation with laryngoscopy is recommended. 2. Chronic sinusitis.
[2020-11-14 22:52] LABS: Basophils # 0.1 K/mm3 (0-0.2); Basophils % 0.8 % (0.1-2.0); Eosinophils % 0.6 % (0.1-12.0); Hematocrit 41.7 % (42.0-52.0); Hemoglobin 14.5 g/dL (14.1-18.0); Lymphocytes # 2.9 K/mm3 (0.7-4.5); Lymphocytes % 43.8 % (10-50); Mean Corpuscular HGB Conc 34.9 g/dL (31.8-35.4); Mean Corpuscular Hemoglobin 33.4 pg (27.0-31.2); Mean Corpuscular Volume 95.8 fl (80-94); Mean Platelet Volume 7.3 fl (7.4-10.4); Monocytes # 0.4 K/mm3 (0.1-1.0); Monocytes % 5.8 % (1.7-9.3); Neutrophils # 3.2 K/mm3 (1.8-7.8); Platelet Count 221 K/mm3 (142-424); Red Blood Count 4.35 M/mm3 (4.60-6.20); Red Cell Distribution Width 15.8 % (11.5-17.5); White Blood Count 6.6 K/mm3 (4.8-10.8)
[2020-11-14 22:56] LABS: Ethyl Alcohol 286 mg/dl (0-10)
[2020-11-14 22:57] LABS: Alanine Aminotransferase 13 U/L (12-78); Albumin Level 4.5 g/dl (3.5-5.0); Alkaline Phosphatase 104 U/L (38-126); Anion Gap 15.8 mEq/L (5-15); Aspartate Amino Transferase 23 U/L (17-59); Bilirubin,Direct 0.3 mg/dl (0.0-0.4); Bilirubin,Indirect 0.7 mg/dL (0.0-0.9); Bilirubin,Unconjugated 0.7 mg/dL (0.0-1.1); Blood Urea Nitrogen 3 mg/dl (9-20); Calcium 9.3 mg/dl (8.4-10.2); Carbon Dioxide 24 mmol/L (22.0-30.0); Chloride 95 mmol/L (98-107); Creatinine Clearance Estimated 121 mL/min (50-200); Estimated Glomerular Filt Rate 119 ml/min (>60); GFR (African American) 144 ML/MIN (>60); Glucose 118 mg/dl (74-100); Sodium 132 mmol/L (136-145)
[2020-11-14 23:00] VITALS: BP 105/70; PULSE 102; O2SAT 96
[2020-11-14 23:01] LABS: Potassium 2.8 mmoL/L (3.5-5.1)
[2020-11-14 23:07] LABS: Adenovirus,PCR Not Detected (NotDetected); Bordetella Pertussis Not Detected (NotDetected); Chlamydophila Pneumoniae, PCR Not Detected (NotDetected); Coronavirus 19, PCR Not Detected (NotDetected); Coronavirus 229E Not Detected (NotDetected); Coronavirus NL63 Not Detected (NotDetected); Coronavirus OC43 Not Detected (NotDetected); Coronovirus HKU1,PCR Not Detected (NotDetected); Human Metapneumovirus Not Detected (NotDetected); Influenza A, PCR Not Detected (NotDetected); Influenza AH1, 2009 Not Detected (NotDetected); Influenza AH1, PCR Not Detected (NotDetected); Influenza AH3,PCR Not Detected (NotDetected); Influenza B, PCR Not Detected (NotDetected); Mycoplasma Pneumoniae, PCR Not Detected (NotDetected); Parainfluenza 1, PCR Not Detected (NotDetected); Parainfluenza 2, PCR Not Detected (NotDetected); Parainfluenza 3, PCR Not Detected (NotDetected); Parainfluenza 4, PCR Not Detected (NotDetected); Respiratory Syncytial Virus Not Detected (NotDetected); Rhinovirus/Enterovirus Not Detected (NotDetected)
[2020-11-14 23:09] LABS: Troponin I < 0.01 ng/ml (0.00-0.034)
[2020-11-14 23:11] LABS: Magnesium 1.8 mg/dl (1.6-2.3)
--- NOTE | 2020-11-14 23:25 | PC.NURSE ---
patient to radiology
--- NOTE | 2020-11-14 23:28 | PC.NURSE ---
patient back from radiology
[2020-11-14 23:30] VITALS: BP 124/84; PULSE 96; O2SAT 98
[2020-11-14 23:58] VITALS: BP 00/00; PULSE 0; RESP 0; TEMP -17.7; TEMP 0
--- NOTE | 2020-11-15 00:08 | PC.NURSE ---
2345- This RN went into pt room to start Rally pack. Pt stated i odnt want any of that stuff. When this Rn asked why, pt said he don't want that crap. I'm ready to go. Get me out of here. This RN explained to pt the risks of leaving AMA and refusing tx. Pt said his uncle was on his way to get him and he signed AMA paper. Pt A&Ox4 and ambulatory out of ED.
== END 2020-11-15 00:02 | disposition left against medical advice (07) ==
PROVIDERS: Emergency Provider Emergency Medicine; PCP Emergency Medicine
DX: Z53.21 Procedure and treatment not carried out due to patient leaving prior to being seen by health care provider (principal); R05 Cough; J02.9 Acute pharyngitis, unspecified
CPT/HCPCS: 70491; 71046; 80048; 80076; 83735; 84484; 85025; 87581; 87633; 87798; 93005; 99283; Q9967

== ENCOUNTER 2020-12-15 19:08 | Emergency (ER) | payer OTHER, SELFPAY ==
[2020-12-15 19:10] VITALS: BP 130/86; PULSE 71; RESP 19; TEMP 36.7; O2SAT 99; BMI 20.5
--- NOTE | 2020-12-15 19:34 | HMH.EDUTC ---
[facility] [place] Impression: Left shoulder pain Qualifiers: Chronicity: acute Qualified Code(s): M25.512 - Pain in left shoulder Osteoarthritis of left shoulder Qualifiers: Osteoarthritis type: unspecified Qualified Code(s): M19.012 - Primary osteoarthritis, left shoulder Disposition: Home, Self-Care Condition on Discharge: Good Instructions: Shoulder Tendinopathy, DI for Shoulder Pain Additional Instructions: Rest the extremity, Elevate the extremity as tolerated while you are resting. Take ibuprofen for pain. Follow up with Dr. Polanco (orthopedics). I put in a referral but you need to call his office and schedule an appointment. Follow up with your regular doctor. GO TO THE ER FOR ANY WORSENING SYMPTOMS Prescriptions: predniSONE [Prednisone 20mg Tab] 20 mg PO BID 4 Days #8 tab Transmission Status: Received by [facility] Referrals: Alvino Gresham MD [Primary Care Provider] - Alexis Polanco MD [Staff Physician] - Time of Disposition: 20:00 Medical Decision Making - Medical Records Medical records reviewed: No: I reviewed the patient's medical records. - Raffaele Inquiry Pt receiving controlled substance: No Vital Signs: 12/15/20 19:10 12/15/20 20:02 Temperature 98.1 F 98.1 F Temperature Source Oral Pulse Rate 71 Pulse Rate [Right Brachial] 71 Respiratory Rate 19 19 Blood Pressure 130/86 Blood Pressure [Right Arm] 130/86 Blood Pressure Mean [Right Arm] 100 Blood Pressure Source [Right Arm] Automatic Cuff Blood Pressure Position [Right Arm] Sitting 02 Sat by Pulse Oximetry 99 Oxygen Delivery Method Room Air Orders (Tests/Meds): ED MEDICATIONS Discontinued Medications Generic Name Dose Route Start Last Admin Trade Name Freq PRN Reason Stop Dose Admin Ketorolac Tromethamine 30 mg 12/15/20 19:44 12/15/20 19:57 Ketorolac 60mg/2ml Vial IM 12/15/20 19:45 30 mg ONCE ONE Administration Methylprednisolone Sodium Succinate 125 mg 12/15/20 19:44 12/15/20 19:57 Methylprednisolone Sod Succ 125mg Vial IM 12/15/20 19:45 125 mg ONCE ONE Administration [facility] [place] - General Stated complaint: PAIN LEFT ARM Time Seen by Provider: 12/15/20 19:34 Mode of Arrival: Ambulatory Source of Information: Patient Limitations: No Limitations Description of Symptoms (Recalled from Triage Doc. by RN): PATIENT C/O SHARP PAIN IN LEFT SHOULDER X 3 DAYS HEENT Symptoms (Recalled from RN notes): No Resp Symptoms (Recalled from RN notes): No Skin Symptoms (Recalled from RN notes): No MS Symptoms (Recalled from RN notes): Yes Functional Status (Recalled from RN notes): WNL - History of Present Illness Provider Complaint: He states that he has a history of chronic left shoulder pain. He fell 7 years ago and broke something in his shoulder. Ever since then he has had flare ups of episodes of shoulder pain. It is worse when he moves his arm or shoulder. He states there is tenderness of the shoulder also. He denies any chest pain and shortness of breath. - Related Data Home Medications Medication Instructions Recorded Confirmed Albuterol Sulfate [Proventil Hfa] 2 puffs IH BIDP PRN 02/29/20 12/09/20 Previous Rx's Medication Instructions Recorded nitroglycerin 0.4 mg sublingual 0.4 mg SUBLINGUAL Q5-15M PRN #10 04/23/20 tablet tab fluticasone propionate 50 See Rx Instructions .ROUTE 09/14/20 mcg/actuation nasal .COMPLEX #16 gram spray,suspension budesonide-formoterol HFA 80 2 puff INHALATION BID #10.2 g 11/03/20 mcg-4.5 mcg/actuation aerosol inhaler pantoprazole 40 mg tablet,delayed 40 mg PO DAILY #90 tab 11/11/20 release furosemide 20 mg tablet See Rx Instructions .ROUTE 11/15/20 .COMPLEX #30 tab propranolol 10 mg tablet See Rx Instructions .ROUTE 11/15/20 .COMPLEX #180 tab doxycycline hyclate 100 mg capsule 100 mg PO BID 10 Days #20 cap 11/16/20 potassium chloride 10 mEq See Rx Instructions .ROUTE 11/18/20 capsule,extend
[2020-12-15 20:02] VITALS: BP 130/86; PULSE 71; RESP 19; TEMP 36.7; O2SAT 99
== END 2020-12-15 20:03 | disposition home or self-care (01) ==
PROVIDERS: Emergency Provider Nurse Practitioner Family; PCP Family Medicine
DX: M19.012 Primary osteoarthritis, left shoulder (principal); M25.512 Pain in left shoulder; K21.9 Gastro-esophageal reflux disease without esophagitis; F17.210 Nicotine dependence, cigarettes, uncomplicated; Z88.5 Allergy status to narcotic agent
CPT/HCPCS: 96372; 99202; G0463

== ENCOUNTER → 2020-12-24 12:24 | Outpatient (CLI) | payer OTHER, SELFPAY ==
--- NOTE | 2020-12-24 12:27 | CT_ITS ---
PROCEDURE: CT CHEST WO CON CLINICAL INDICATION: hoarseness Chronic cough, smoker COMPARISON: No exams were available for comparison TECHNIQUE: Axial images obtained with sagittal and coronal reformats. All CT scans at the facility use one or more dose reduction, viz: automated exposure control, ma/kV adjustment per patient size (including targeted exams where dose is matched to indication, i.e. head), or iterative reconstruction technique. FINDINGS: HEART AND MEDIASTINAL STRUCTURES: Coronary artery calcifications are present. No mediastinal or hilar mass or adenopathy. There is mild focal thickening of the pericardium anteriorly at 7 mm.There is thickening of the gastroesophageal junction. This is nonspecific and may only be due to nondistention. Neoplasm or esophagitis is also considered in the differential diagnosis. Barium swallow or upper endoscopy may provide further evaluation. Air is present in the upper esophagus LUNGS AND PLEURAL SPACES: COPD changes. Calcified granuloma right upper lobe. There is a small ill-defined parenchymal opacity in the right upper lobe inferiorly at 8 mm with a small central lucency. This is nonspecific. Scarring is present in the right middle lobe medially. There is evidence of old granulomatous disease.. There is a 3 mm noncalcified nodule in the left upper lobe anteriorly nonspecific. No effusions. No highly suspicious pulmonary nodules. BONY STRUCTURES: Old right 6, 7th, and 8th rib fractures UPPER ABDOMEN: Heterogeneous fatty liver involvement. There are few small nodes in the epigastric region measuring up to 1.3 x 0.9 cm. ADDITIONAL FINDINGS: No other significant abnormalities. IMPRESSION: 1. COPD. Indeterminate 8 mm ground-glass opacity with central lucency right upper lobe. Suggest 3 month follow-up to confirm stability or resolution. 2. There is thickening of the gastroesophageal junction. This is nonspecific and may only be due to nondistention. Neoplasm or esophagitis is also considered in the differential diagnosis. Barium swallow or upper endoscopy may provide further evaluation. There are few small mildly prominent lymph nodes in the epigastric region somewhat making this area of thickening slightly more suspicious. Follow-up is recommended. Dictated by: Doe Cervantes MD 12/24/2020 12:52 Doe Cervantes MD in [place] 12/24/2020 12:52
== END ==
PROVIDERS: PCP Family Medicine; Visit Provider Otolaryngology
DX: R05 Cough (principal); R49.0 Dysphonia
CPT/HCPCS: 71250

== ENCOUNTER → 2021-01-14 13:02 | Outpatient (CLI) | payer OTHER, SELFPAY ==
--- NOTE | 2021-01-14 13:02 | FL_ITS ---
PROCEDURE: FL BARIUM SWALLOW CLINICAL INDICATION: abnormal CT COMPARISON: CT CT SOFT TISSUE NECK W CON from 11/14/[address] CHEST WO CON from 12/24/2020 TECHNIQUE: In the upright position the patient was observed to swallow barium in both the AP and lateral view. The cervical esophagus was examined under fluoroscopy with images obtained. The patient was then placed prone in the right anterior oblique position and was observed to swallow barium with Valsalva technique . FLUOROSCOPY TIME: 1.21 minutes FINDINGS: There was no evidence of aspiration. There was normal peristalsis. There is focal irregularity noted in the distal esophagus/gastroesophageal junction with poor distensibility and possible focal filling defect on the lateral images. AP and lateral views of the upper esophagus oropharynx demonstrates no focal abnormality. No other filling defects or mucosal abnormalities. No masses or strictures. Mild gastroesophageal reflux is noted. There is a small hiatus hernia. IMPRESSION: Focal narrowing with poor distention of the distal esophagus/gastroesophageal junction is noted. Small to moderate hiatus hernia. Gastroesophageal reflux is noted. Upper GI endoscopy should be considered. Dictated by: Vickie Polanco 01/14/2021 14:45 Vickie Polanco in [place] 01/14/2021 14:45
== END ==
PROVIDERS: PCP Family Medicine; Visit Provider Otolaryngology
DX: J38.00 Paralysis of vocal cords and larynx, unspecified (principal); J40 Bronchitis, not specified as acute or chronic; R49.0 Dysphonia
CPT/HCPCS: 74220

== ENCOUNTER 2021-01-26 15:56 | Emergency (ER) | payer OTHER, SELFPAY ==
--- NOTE | 2021-01-26 15:29 | ECG_ITS ---
APPROVED REPORT Exam: Resting ECG HR:107 bpm ECG Measurements Heart Rate 107 AXES [place] 196 P 49 QRSd 76 QRS -19 QT 332 T 56 QTc 443 Conclusion Sinus tachycardia Left atrial abnormality Borderline ECG Electronically signed by : Tenzin Luna MD 01/28/2021 11:39:37
[2021-01-26 15:33] VITALS: BP 122/90; PULSE 108; RESP 16; TEMP 36.3; O2SAT 99; BMI 21.8
--- NOTE | 2021-01-26 15:43 | XR_ITS ---
PROCEDURE INFORMATION: Exam: XR Chest Exam date and time: 01/26/2021 3:43 PM Age: 50 years old Clinical indication: Pain; Angina pectoris; Additional info: Cp, cough TECHNIQUE: Imaging protocol: XR of the chest. Views: 1 view. COMPARISON: CT CHEST WO CON 12/24/2020 12:32 PM FINDINGS: Airway: Patent Lungs: Platelike atelectasis in the left lung base. There are multiple punctate pulmonary parenchymal calcifications, consistent with remote granulomatous organism exposure. No acute interstitial or airspace disease. Pleural spaces: Unremarkable. No pleural effusion. No pneumothorax. Heart/Mediastinum: Unremarkable. No cardiomegaly. Bones/joints: Osseous irregularity at the left humeral neck. No other acute skeletal pathology. IMPRESSION: 1. Findings at the left humeral neck appear to be related to sequela of prior injury in the appropriate clinical setting. Consider correlation with any acute point tenderness at this level. 2. No acute cardiopulmonary pathology is identified.
[2021-01-26 16:09] LABS: Basophils # 0.1 K/mm3 (0-0.2); Basophils % 0.8 % (0.1-2.0); Eosinophils # 0.1 K/mm3 (0.0-0.4); Eosinophils % 1.1 % (0.1-12.0); Hematocrit 46.3 % (42.0-52.0); Hemoglobin 15.4 g/dL (14.1-18.0); Lymphocytes % 28.5 % (10-50); Mean Corpuscular HGB Conc 33.3 g/dL (31.8-35.4); Mean Corpuscular Hemoglobin 32.1 pg (27.0-31.2); Mean Corpuscular Volume 96.4 fl (80-94); Mean Platelet Volume 7.2 fl (7.4-10.4); Monocytes # 0.4 K/mm3 (0.1-1.0); Monocytes % 5.9 % (1.7-9.3); Neutrophils # 4.5 K/mm3 (1.8-7.8); Neutrophils % 63.7 % (37.0-80.0); Platelet Count 322 K/mm3 (142-424); Red Cell Distribution Width 14.6 % (11.5-17.5); White Blood Count 7.1 K/mm3 (4.8-10.8)
[2021-01-26 16:13] LABS: Chloride 92 mmol/L (98-107)
[2021-01-26 16:14] LABS: Potassium 3.5 mmoL/L (3.5-5.1); Sodium 132 mmol/L (136-145)
[2021-01-26 16:17] LABS: Anion Gap 15.5 mEq/L (5-15); Blood Urea Nitrogen 2 mg/dl (9-20); Calcium 9.6 mg/dl (8.4-10.2); Carbon Dioxide 28 mmol/L (22.0-30.0); Creatinine Clearance Estimated 161 mL/min (50-200); Estimated Glomerular Filt Rate 143 ml/min (>60); GFR (African American) 173 ML/MIN (>60); Glucose 112 mg/dl (74-100)
[2021-01-26 16:30] LABS: Troponin I < 0.01 ng/ml (0.00-0.034)
[2021-01-26 17:06] VITALS: BP 109/64; PULSE 90; RESP 18; TEMP 36.3; O2SAT 99
--- NOTE | 2021-01-26 17:06 | PC.NURSE ---
Patient called for nurse, said he wanted to go home, he had been here 57 mins said ngozi been here an hr and no one is doing anything, i advised him he had ekg, cxr and labs and we were waiting on those results. pt signed AMA and left.
== END 2021-01-26 17:06 | disposition left against medical advice (07) ==
PROVIDERS: Emergency Provider Family Medicine; PCP Emergency Medicine
DX: Z53.21 Procedure and treatment not carried out due to patient leaving prior to being seen by health care provider (principal)
CPT/HCPCS: 71045; 80048; 84484; 85025; 93005; 99283

== ENCOUNTER 2021-02-03 19:53 | Emergency (ER) | payer OTHER, SELFPAY ==
[2021-02-03 19:54] VITALS: BP 126/91; PULSE 119; RESP 26; TEMP 37.2; O2SAT 97; BMI 21.7
--- NOTE | 2021-02-03 20:13 | PC.NURSE ---
Pt transferred to the ER for further evaluation for chest pressure. SPoke to Melvin SERRA who states to place pt in the lobby at this time.
--- NOTE | 2021-02-03 20:21 | XR_ITS ---
PROCEDURE INFORMATION: Exam: XR Chest Exam date and time: 02/03/2021 8:21 PM Age: 50 years old Clinical indication: Smoker's cough TECHNIQUE: Imaging protocol: XR of the chest. Views: 2 views. COMPARISON: CR XR CHEST PORTABLE 01/26/2021 4:11 PM FINDINGS: Lungs: Stigmata of old granulomatous disease. Nonspecific lingula opacities. Pleural spaces: Unremarkable. No pleural effusion. No pneumothorax. Heart/Mediastinum: Unremarkable. No cardiomegaly. Bones/joints: Old right rib fractures. IMPRESSION: Nonspecific lingula opacities. While this could be atelectasis or scarring, please exclude infection clinically. A 6 week follow-up chest radiograph is recommended.
--- NOTE | 2021-02-03 20:21 | HMH.EDUTC ---
[facility] Disposition Clinical Impression: Shortness of breath Disposition: Still a Patient Condition on Discharge: Fair Referrals: Alvino Gresham MD [Primary Care Provider] - Time of Disposition: 20:13 Medical Decision Making - Raffaele Inquiry Pt receiving controlled substance: No Raffaele was queried for this patient: No Vital Signs: 02/03/21 19:54 Temperature 98.9 F Temperature Source Oral Pulse Rate [Left Radial] 119 H Respiratory Rate 26 H Blood Pressure [Right Arm] 126/91 H Blood Pressure Mean [Right Arm] 102 Blood Pressure Source [Right Arm] Automatic Cuff Blood Pressure Position [Right Arm] Sitting 02 Sat by Pulse Oximetry 97 Oxygen Delivery Method Room Air Orders (Tests/Meds): ORDERS Category Date Time Status XR chest 2V Stat Exams 02/03/21 20:21 Taken Medical Decision Narrative: Patient holding hand on chest area and states that he was having pain across his chest and feeling like he was short of breath and lungs felt full Due to patient history and complaint of pain in and across his chest and holding hand on chest area, feeling of tightness in chest at times along with feeling short of breath Recommended transfer to the ED discussed with patient about being transferred to the ED for further work up evaluation and testing due to stated complaints and Patient agreed with transfer, Spoke with Meseret and advised her of patient complaint and she advised to have patient sit in lobby and they would move him back to the ED [facility] HPI - General Stated complaint: can't cough it up Time Seen by Provider: 02/03/21 20:22 Mode of Arrival: Ambulatory Source of Information: Patient Limitations: No Limitations Description of Symptoms (Recalled from Triage Doc. by RN): c/o chest congestion and cough for 2 days HEENT Symptoms (Recalled from RN notes): No Resp Symptoms (Recalled from RN notes): Yes (cough) Skin Symptoms (Recalled from RN notes): No MS Symptoms (Recalled from RN notes): No Functional Status (Recalled from RN notes): na - History of Present Illness Provider Complaint: Patient states that he has been having pain across his chest and states it feels tight in chest at times today , with cough, and chest congestion and feels like he is full and cant cough anything up for a couple days but when he does cough it up it is green States that he has felt short of breath all day and continued to get worse, states used his nebulizer 3 times but no relief and just started having hicups again - Related Data Home Medications Medication Instructions Recorded Confirmed Albuterol Sulfate [Proventil Hfa] 2 puffs IH BIDP PRN 02/29/20 01/28/21 guaifenesin 600 mg tablet, ea PO 12/31/20 01/28/21 extended release 12 hr Previous Rx's Medication Instructions Recorded nitroglycerin 0.4 mg sublingual 0.4 mg SUBLINGUAL Q5-15M PRN #10 04/23/20 tablet tab fluticasone propionate 50 See Rx Instructions .ROUTE 09/14/20 mcg/actuation nasal .COMPLEX #16 gram spray,suspension pantoprazole 40 mg tablet,delayed 40 mg PO DAILY #90 tab 11/11/20 release nicotine 14 mg/24 hr daily 1 patch TRANSDERMA DAILY #28 each 01/06/21 transdermal patch aspirin 325 mg tablet,delayed See Rx Instructions .ROUTE 01/12/21 release .COMPLEX #30 tab baclofen 10 mg tablet 10 mg PO BID PRN #20 tab 01/28/21 hydrocodone 7.5 mg-acetaminophen 0.5 tab PO Q8H PRN #45 tab 01/28/21 325 mg tablet budesonide-formoterol HFA 80 See Rx Instructions .ROUTE 02/03/21 mcg-4.5 mcg/actuation aerosol .COMPLEX #10.2 g inhaler furosemide 20 mg tablet See Rx Instructions .ROUTE 02/03/21 .COMPLEX #30 tab ipratropium 0.5 mg-albuterol 3 mg See Rx Instructions .ROUTE 02/03/21 (2.5 mg base)/3 mL nebulization .COMPLEX #180 ml soln potassium chloride 10 mEq See Rx Instructions .ROUTE 02/03/21 capsule,extended release .COMPLEX #30 cap propranolol 10 mg tablet See Rx Instructions .ROUTE 02/03/21 .COMPLEX #180 tab Allergies Allergy/AdvReac
--- NOTE | 2021-02-03 20:22 | PC.NURSE ---
Radiology aware of chest x-ray
--- NOTE | 2021-02-03 20:22 | PC.NURSE ---
PT states he was having some chest pain but then he started hiccuping and the pains went away.
[2021-02-03 21:11] VITALS: BP 102/70; PULSE 118; RESP 16; TEMP 36.9; O2SAT 99; BMI 33.6
[2021-02-03 21:37] LABS: Basophils % 0.7 % (0.1-2.0); Eosinophils # 0.1 K/mm3 (0.0-0.4); Eosinophils % 1.3 % (0.1-12.0); Hematocrit 40.3 % (42.0-52.0); Hemoglobin 13.6 g/dL (14.1-18.0); Lymphocytes # 1.9 K/mm3 (0.7-4.5); Lymphocytes % 29.1 % (10-50); Mean Corpuscular HGB Conc 33.8 g/dL (31.8-35.4); Mean Corpuscular Hemoglobin 31.6 pg (27.0-31.2); Mean Corpuscular Volume 93.5 fl (80-94); Mean Platelet Volume 7.4 fl (7.4-10.4); Monocytes # 0.3 K/mm3 (0.1-1.0); Neutrophils # 4.1 K/mm3 (1.8-7.8); Neutrophils % 63.9 % (37.0-80.0); Platelet Count 243 K/mm3 (142-424); Red Blood Count 4.31 M/mm3 (4.60-6.20); White Blood Count 6.4 K/mm3 (4.8-10.8)
[2021-02-03 21:41] LABS: Alanine Aminotransferase 21 U/L (12-78); Albumin Level 3.8 g/dl (3.5-5.0); Albumin/Globulin Ratio 1.2 (1.1-1.8); Alkaline Phosphatase 119 U/L (38-126); Anion Gap 13.1 mEq/L (5-15); Aspartate Amino Transferase 23 U/L (17-59); Bilirubin,Total 0.5 mg/dl (0.2-1.3); Blood Urea Nitrogen 3 mg/dl (9-20); Calcium 8.5 mg/dl (8.4-10.2); Carbon Dioxide 27 mmol/L (22.0-30.0); Chloride 92 mmol/L (98-107); Creatinine Clearance Estimated 180 mL/min (50-200); Estimated Glomerular Filt Rate 143 ml/min (>60); GFR (African American) 173 ML/MIN (>60); Globulin 3.3 g/dL (1.3-3.2); Glucose 107 mg/dl (74-100); Potassium 3.1 mmoL/L (3.5-5.1); Sodium 129 mmol/L (136-145); Total Protein,Serum 7.1 g/dl (6.3-8.2)
[2021-02-03 21:46] LABS: Coronavirus 19, PCR Not Detected (NotDetected); Influenza A, PCR Not Detected (NotDetected); Influenza B, PCR Not Detected (NotDetected)
[2021-02-03 21:47] LABS: C-Reactive Protein 100.4 mg/L (0-4)
[2021-02-03 21:48] LABS: Ethyl Alcohol 171 mg/dl (0-10)
[2021-02-03 22:01] LABS: Procalcitonin 0.197 ng/mL (0.0-2.0)
[2021-02-03 22:20] LABS: Erythrocyte Sedimentation Rate 84 mm/hr (0-15)
[2021-02-03 23:02] VITALS: BP 118/74; PULSE 90; RESP 16; TEMP 36.8; O2SAT 96
== END 2021-02-03 23:04 | disposition left against medical advice (07) ==
LOC: UTC 20:29 → ER 20:45
PROVIDERS: Emergency Provider Emergency Medicine; PCP Family Medicine
DX: R06.02 Shortness of breath (principal); R05 Cough; K21.9 Gastro-esophageal reflux disease without esophagitis; J44.9 Chronic obstructive pulmonary disease, unspecified; F17.210 Nicotine dependence, cigarettes, uncomplicated
CPT/HCPCS: 71046; 80053; 84145; 85025; 85651; 86140; 96365; 96375; 99284; U0003

== ENCOUNTER 2021-02-16 11:29 | Emergency (ER) | payer OTHER, SELFPAY ==
[2021-02-16] VITALS (21 sets, daily range): BP systolic 0–117; BP diastolic 0–93; PULSE 0–150; RESP 0–20; TEMP -17.7–0; O2SAT 0–99; BMI 16.9
--- NOTE | 2021-02-16 11:30 | PC.NURSE ---
Pt arrived via EMS at 1129, CPR in progress per EMS Pc Tech pt was intubated per EMS with 7.5 ETT 20g IV L AC 1 L of NS wide open flow rate. 1 Atropine 3 dose of Epi Per report of EMS pt neighbor seen pt fall over out of his chair, the neighbor went to get pts mother. Mother arrived and called the police, when police arrived on scene they called EMS and CPR was started.
--- NOTE | 2021-02-16 11:37 | CT_ITS ---
PROCEDURE INFORMATION: Exam: CT Head Without Contrast Exam date and time: 02/16/2021 11:37 AM Age: 50 years old Clinical indication: Injury or trauma; Additional info: Head trauma TECHNIQUE: Imaging protocol: Computed tomography of the head without contrast. Radiation optimization: All CT scans at this facility use at least one of these dose optimization techniques: automated exposure control; mA and/or kV adjustment per patient size (includes targeted exams where dose is matched to clinical indication); or iterative reconstruction. COMPARISON: CT HEAD/BRAIN WO CON 02/29/2020 8:44 PM FINDINGS: Brain: Hernandez white matter distinction is maintained throughout the brain. No radiographic evidence of intracranial hemorrhage. No CT evidence of mass hemorrhage or acute infarction. Cerebral ventricles: Ventricles are of normal size and configuration. Paranasal sinuses: Small amount of fluid within the sphenoid sinus. Mild mucosal thickening ethmoidal air cells Mastoid air cells: Visualized mastoid air cells are well aerated. Bones/joints: Unremarkable. No acute fracture. Soft tissues: Unremarkable. Other findings: No intra or extra-axial masses, lesions or collections. IMPRESSION: No acute intracranial process is appreciated.
--- NOTE | 2021-02-16 11:37 | XR_ITS ---
PROCEDURE INFORMATION: Exam: XR Chest Exam date and time: 02/16/2021 11:37 AM Age: 50 years old Clinical indication: Device placement; Ett placement (vent status); Additional info: Fall, post code, intubation TECHNIQUE: Imaging protocol: XR of the chest. Views: 1 view. COMPARISON: CR XR CHEST 2V 02/03/2021 8:26 PM FINDINGS: Tubes, catheters and devices: NewEndotracheal tube above the penny adjacent to the level of the clavicles. Nasogastric tube tip not well visualized. Consider additional view to document position. Lungs: Patchy airspace disease within the right lower lobe versus middle lobe. Pleural spaces: Unremarkable. No pleural effusion. No pneumothorax. Heart/Mediastinum: Unremarkable. No cardiomegaly. Bones/joints: Unremarkable. IMPRESSION: 1. Nasogastric tube tip not well visualized. Consider additional view to document position. 2. Patchy airspace disease within the right lower lobe versus middle lobe. Findings represent a change from the earlier referenced comparison study.
--- NOTE | 2021-02-16 11:39 | ECG_ITS ---
APPROVED REPORT Exam: Resting ECG HR:121 bpm ECG Measurements Heart Rate 121 AXES ND 254 P 57 QRSd 80 QRS 66 QT 328 T 183 QTc 465 Conclusion Sinus tachycardia with 1st degree AV block Possible Left atrial enlargement Marked ST abnormality, possible inferior subendocardial injury Marked ST abnormality, possible anterior subendocardial injury Abnormal ECG Electronically signed by : Tenzin Luna MD 02/17/2021 17:36:00
--- NOTE | 2021-02-16 11:43 | HMH.EDGENADL ---
ED Disposition Clinical Impression: Cardiac arrest, Cardiogenic shock, Esophageal mass Lung abscess Qualifiers: Pulmonary abscess pneumonia presence: with pneumonia Laterality: right Lung location: lower lobe of lung Qualified Code(s): J85.1 - Abscess of lung with pneumonia Forehead laceration Qualifiers: Encounter type: initial encounter Qualified Code(s): S01.81XA - Laceration without foreign body of other part of head, initial encounter Gastrointestinal bleeding Qualifiers: GI bleed type/associated pathology: unspecified gastrointestinal hemorrhage type Qualified Code(s): K92.2 - Gastrointestinal hemorrhage, unspecified Disposition: Condition on Discharge: Referrals: Provider,Referral, MD [Primary Care Provider] - - Critical Care Critical Care Time: Yes Attestation: On , the high probability of a clinically significant, sudden or life threatening deterioration of the following system(s) required my full and direct attention, intervention and personal management. The time I documented below is in addition to time spent performing reported procedures but includes the following listed in this critical care notation. Vital system(s) involved:: Circulatory Failure, Respiratory Failure My critical care processes included: Assessment & monitoring of V/S, Initial and Re-exams, Data Review/Interpretation, Coordinating Care, Medication Orders and management, Documentation Probable Cause of : Cardiac arrest Medical Decision Making - Raffaele Inquiry Pt receiving controlled substance: No Vital Signs: 02/16/21 11:46 02/16/21 11:53 02/16/21 12:01 Temperature Pulse Rate 141 H 129 H Respiratory Rate Blood Pressure 105/79 L 117/83 54/32 L Blood Pressure Source Blood Pressure Position Supine Supine 02 Sat by Pulse Oximetry Oxygen Delivery Method Mechanical Ventilation 02/16/21 12:05 02/16/21 12:06 02/16/21 12:08 Temperature Pulse Rate 128 H 130 H Respiratory Rate 20 Blood Pressure 64/38 L 73/41 L Blood Pressure Source Blood Pressure Position Supine 02 Sat by Pulse Oximetry 98 97 Oxygen Delivery Method Mechanical Ventilation 02/16/21 12:15 02/16/21 12:25 02/16/21 12:33 Temperature Pulse Rate 129 H 127 H 129 H Respiratory Rate Blood Pressure 100/57 L 90/65 L 89/63 L Blood Pressure Source Blood Pressure Position 02 Sat by Pulse Oximetry 99 98 92 L Oxygen Delivery Method Mechanical Ventilation Mechanical Ventilation Mechanical Ventilation 02/16/21 12:37 02/16/21 12:40 02/16/21 12:48 Temperature Pulse Rate 130 H 127 H 124 H Respiratory Rate Blood Pressure 80/62 L 89/65 L 95/73 L Blood Pressure Source Automatic Cuff Blood Pressure Position Supine Supine 02 Sat by Pulse Oximetry Oxygen Delivery Method 02/16/21 13:00 02/16/21 13:30 02/16/21 14:00 Temperature Pulse Rate 129 H 135 H 145 H Respiratory Rate Blood Pressure 89/60 L 84/57 L 102/85 L Blood Pressure Source Blood Pressure Position 02 Sat by Pulse Oximetry 97 92 L 82 L Oxygen Delivery Method Mechanical Ventilation Mechanical Ventilation Mechanical Ventilation 02/16/21 14:30 02/16/21 15:00 02/16/21 15:30 Temperature Pulse Rate 145 H 150 H Respiratory Rate Blood Pressure 92/49 L 80/62 L 112/43 L Blood Pressure Source Blood Pressure Position Supine Supine 02 Sat by Pulse Oximetry 82 L 84 L Oxygen Delivery Method Mechanical Ventilation Mechanical Ventilation 02/16/21 15:50 02/16/21 16:49 Temperature 0 F L Pulse Rate 143 H 0 L Respiratory Rate 0 L Blood Pressure 70/43 L 0/0 L Blood Pressure Source Blood Pressure Position Supine 02 Sat by Pulse Oximetry 83 L Oxygen Delivery Method Mechanical Ventilation Mechanical Ventilation - Lab Data Lab Results 02/16/21 11:39: Specimen Source Left femoral, O2 % 100%, ABG pH 6.81 L*, ABG pCO2 65.3 H, ABG pO2 92.5, ABG HCO3 10.2 L, ABG Total CO2 12.2 L, ABG O2 Saturation
[2021-02-16 11:49] LABS: ABG PH 6.81 mmol/L (7.35-7.45)
--- NOTE | 2021-02-16 11:49 | PC.NURSE ---
pt to ct at this time, RT and nursing staff transporting pt, pt on lunchroom monitor and zoll
[2021-02-16 11:50] LABS: ABG Base Excess -24.8 mmol/L (-2.4-2.3); ABG HCO3 10.2 mmhg (22.0-26.0); ABG Oxygen Saturation 88 % (90-100); ABG PCO2 65.3 mmhg (35.0-45.0); ABG PO2 92.5 mmhg (80-100); ABG TCO2 12.2 mmhg (23-27); Oxygen 100% %
[2021-02-16 11:51] LABS: Allen's Test Non Applicable; Source Left Femoral
[2021-02-16 11:55] LABS: Basophils # 0.1 K/mm3 (0-0.2); Basophils % 0.7 % (0.1-2.0); Eosinophils % 0.3 % (0.1-12.0); Hematocrit 43.3 % (42.0-52.0); Hemoglobin 13.7 g/dL (14.1-18.0); Lymphocytes # 3.1 K/mm3 (0.7-4.5); Lymphocytes % 27.1 % (10-50); Mean Corpuscular HGB Conc 31.5 g/dL (31.8-35.4); Mean Corpuscular Hemoglobin 31.4 pg (27.0-31.2); Mean Corpuscular Volume 99.5 fl (80-94); Mean Platelet Volume 8.4 fl (7.4-10.4); Monocytes # 0.5 K/mm3 (0.1-1.0); Monocytes % 4.6 % (1.7-9.3); Neutrophils # 7.8 K/mm3 (1.8-7.8); Neutrophils % 67.3 % (37.0-80.0); Platelet Count 327 K/mm3 (142-424); Red Blood Count 4.35 M/mm3 (4.60-6.20); Red Cell Distribution Width 14.2 % (11.5-17.5); White Blood Count 11.6 K/mm3 (4.8-10.8)
--- NOTE | 2021-02-16 12:03 | CT_ITS ---
PROCEDURE: CT CERVICAL SPINE WO CON CLINICAL INDICATION: head injury COMPARISON: CT SPCERVWO CT cervical spine wo con from 01/19/[address] HEAD/BRAIN WO CON from 02/16/2021 TECHNIQUE: Axial images obtained with sagittal and coronal reformats. All CT scans at the facility use one or more dose reduction, viz: automated exposure control, ma/kV adjustment per patient size (including targeted exams where dose is matched to indication, i.e. head), or iterative reconstruction technique. Axial spiral CT scanning performed of the cervical spine beginning at the base of the skull and continuing to the upper T-spine. 3-D multiplanar reconstruction with 3-D manipulation of volumetric data set in image rendering was completed by the radiologist and/or technologist with the supervision of the radiologist on independent workstation. FINDINGS: There is normal alignment. No acute fracture or dislocation is evident. There is an endotracheal and nasogastric tube noted. There are mild osteoarthritic changes at the atlantoaxial joint at the odontoid process and anterior arch of C1. There is an air-fluid level in the sphenoid sinus. There is mild degree of motion artifact which somewhat obscures fine detail. C2-C3: Mild uncovertebral hypertrophy on the right with mild right-sided foraminal narrowing. C3-C4: Mild bulging disc C4-C5: Mild degenerative disc disease with a small broad-based central disc protrusion or bulge. C5-C6: Mild bulging disc. C6-C7: Unremarkable. C7-T1: Unremarkable. Mild synovial hypertrophy noted at the sternoclavicular joints. There is an endotracheal tube and a nasogastric tube present. There is increased soft tissue density cephalad to the bulb of the endotracheal tube which could be related to retained secretions. However, there is also increased soft tissue density anterior to the thyroid cartilage with minimal depression posteriorly of the inferior aspect of the thyroid cartilage. There is demineralization of the lower aspect of the thyroid cartilage compared to 01/19/2019. The cricoid cartilage appears intact. There is a small amount of soft tissue gas superficial to the thyroid cartilage. The increased soft tissue density and depression of the inferior aspect of the thyroid cartilage IMPRESSION: 1. No evidence of acute fracture or dislocation. 2. Cervical spondylosis. 3. Increased soft tissue density both posterior and anterior to the thyroid cartilage with erosive change along the inferior aspect of the thyroid cartilage and minimal buckling of the inferior aspect of the thyroid cartilage posteriorly. Neoplasm or infection is a consideration. Post traumatic changes are also considered. Dictated by: Doe Cervantes MD 02/16/2021 13:30 Doe Cervantes MD in [facility] 02/16/2021 13:30
[2021-02-16 12:07] LABS: Chloride 89 mmol/L (98-107); Sodium 127 mmol/L (136-145)
[2021-02-16 12:10] LABS: Alanine Aminotransferase 15 U/L (12-78); Albumin Level 3.5 g/dl (3.5-5.0); Alkaline Phosphatase 81 U/L (38-126); Aspartate Amino Transferase 40 U/L (17-59); Bilirubin,Direct 0.7 mg/dl (0.0-0.4); Bilirubin,Indirect 0.2 mg/dL (0.0-0.9); Bilirubin,Total 0.9 mg/dl (0.2-1.3); Bilirubin,Unconjugated 0.2 mg/dL (0.0-1.1); Blood Urea Nitrogen 3 mg/dl (9-20); Calcium 9.3 mg/dl (8.4-10.2); Carbon Dioxide 14 mmol/L (22.0-30.0); Creatinine Clearance Estimated 118 mL/min (50-200); Estimated Glomerular Filt Rate 143 ml/min (>60); GFR (African American) 173 ML/MIN (>60); Glucose 169 mg/dl (74-100); Total Protein,Serum 6.7 g/dl (6.3-8.2)
[2021-02-16 12:11] LABS: Ethyl Alcohol 18 mg/dl (0-10)
--- NOTE | 2021-02-16 12:12 | PC.NURSE ---
MACIE HINTON speaking with Dr. Gillette
--- NOTE | 2021-02-16 12:17 | CA_ITS ---
APPROVED REPORT EXAM: Limited 2D Echocardiogram [employer]: Sumaya ParsonPHYLICIA Ht: 6 ft 0 in Wt: 125lbs BSA: 1.74 BP: 90/60 mmHg Indications: S/P CODE BLUE,TACHYCARDIA TDS-PT FLAT ON BACK INTUBATED M-Mode Dimensions RVDd 1.29 cm (0.9-2.6) LA Diam 2.50 cm (1.9-4.0) LVDd 3.64 cm (3.5-5.7) Ao Diam 2.86 cm (2.0-3.7) LVDs 2.66 cm (3.5-5.7) IVSd 1.67 cm (0.6-1.1) PWd 1.06 cm (0.6-1.1) EF (Teich) 53.50% FS 26.90% EDV (Teich) 55.90 mL ESV (Teich) 26.00 mL Pulmonary Valve PV Peak Velocity 116.00 (50-150 cm/s) Left Ventricle Very difficult study because of the patient factors and poor acoustic windows endocardial surfaces are very poorly visualized. Probably preserved left ventricular systolic function, visually estimated ejection fraction is 55% endocardial surfaces are very poorly visualized for assessment of wall motion abnormalities. Diastolic parameters are inconclusive. Right Ventricle Right atrium and right ventricle appears to be mildly enlarged with normal contractility. Aortic Valve Aortic valve is minimally thickened and fibrosed. Mitral Valve Mitral valve grossly normal. Tricuspid Valve Tricuspid valve is poorly visualized. Pulmonic Valve Pulmonic valve is poorly visualized. Great Vessels Aortic root is normal size Pericardium Small pericardial effusion noted. Conclusion 1. Technically difficult and poor study as described above 2. Probably preserved left ventricular systolic function. 3. Other ancillary findings as described above Electronically signed by : Hilton Haley MD 02/17/2021 15:54:10
--- NOTE | 2021-02-16 12:19 | CT_ITS ---
PROCEDURE: CT ANGIO CHEST PE PROTOCOL CLINCIAL INDICATION: cardiac arrest after lungs hurt COMPARISON: CT CT SOFT TISSUE NECK W CON from 11/14/[address] CHEST WO CON from 12/24/[address] ABDOMEN PELVIS W CON from 02/16/2021 TECHNIQUE: IV Contrast: 70ML Isovue 370 Axial images obtained with sagittal and coronal reformats. All CT scans at the facility use one or more dose reduction, viz: automated exposure control, ma/kV adjustment per patient size (including targeted exams where dose is matched to indication, i.e. head), or iterative reconstruction technique. FINDINGS: Please see cervical spine CT report regarding airway findings and soft tissues of the neck. Nasogastric tube and endotracheal tube are present. Endotracheal tube is in good position well above the penny. No evidence of pulmonary embolus. There is diffuse thickening of the esophagus and at the esophagogastric junction which could be inflammatory/infectious or neoplastic. This has progressed compared to the previous study. The there is a suggestion of a fistula between the distal esophagus on the right series 2 image 233 through 236 which appears to be contiguous with a right lower lobe abscess. The abscess cavity is in the right lower lobe medially measuring 6.7 cm AP, 4.7 cm transverse, and 4.3 cm cephalad caudad. There is diffuse consolidation of the right lower lobe consistent with pneumonia. No evidence of pulmonary embolus. The peripheral pulmonary arteries are not well opacified and there is mild motion artifact. There are some mildly prominent mediastinal lymph nodes unchanged. COPD findings. A new subpleural opacity is present in the right upper lobe posteriorly at 9 mm. An additional subpleural opacity is present in the left upper lobe at 9 mm which has developed in the interval. There are atelectatic changes in the left lower lobe which has developed. No pleural effusion. There are old right-sided rib fractures. IMPRESSION: 1. No evidence of central pulmonary embolus. 2. Diffuse thickening of the mid and distal esophagus most prominent at the gastroesophageal junction which may be neoplastic or inflammatory/infectious in etiology. 3. There is a suggestion of a fistula between the distal esophagus on the right communicating with a right lower lobe abscess 4. Diffuse pneumonia/consolidation of the right lower lobe 5. At least 2 new subpleural densities 1 in the right upper and 1 in the left upper lobe nonspecific. 6. Abnormal soft tissue density along the lower aspect of the thyroid cartilage centrally and on the left with erosion of the thyroid cartilage and increased soft tissue density around the endotracheal tube at the level of the thyroid cartilage suspicious for neoplasm. Infection would also be included in the differential diagnosis. Dictated by: Doe Cervantes MD 02/16/2021 13:49 Doe Cervantes MD in [facility] 02/16/2021 13:49
[2021-02-16 12:24] LABS: Troponin I < 0.01 ng/ml (0.00-0.034)
--- NOTE | 2021-02-16 12:29 | PC.NURSE ---
pt return to CT at this time for additional images, RT and nursing staff transporting pt
--- NOTE | 2021-02-16 12:29 | CT_ITS ---
PROCEDURE: CT ABDOMEN PELVIS W CON CLINICAL INDICATION: brown blood from NG COMPARISON: No exams were available for comparison TECHNIQUE: IV Contrast: 75ML Isovue 370 Oral Contrast None Axial images obtained with sagittal and coronal reformats. All CT scans at the facility use one or more dose reduction, viz: automated exposure control, ma/kV adjustment per patient size (including targeted exams where dose is matched to indication, i.e. head), or iterative reconstruction technique. FINDINGS: There is diffuse thickening of the distal esophagus and the GE junction suspicious for neoplasm with suspected fistula to a right lower lobe abscess and with diffuse pneumonia/consolidation of the right lower lobe. Air-fluid levels present in the abscess. The nasogastric tube tip is at the distal esophagus and not in the body of the stomach. There may be a soft tissue mass at the GE junction precluding passage of the nasogastric tube into the stomach. There is mild gaseous distention of the stomach and mild distension of the duodenum which is filled with fluid. The liver, spleen, adrenal glands, pancreas, and kidneys have an unremarkable appearance. There is a mild amount of retained colonic feces. There are fluid-filled loops of small bowel as well as fecalization of small bowel contents within the mid and distal ileum. No transition point apparent. The urinary bladder is slightly distended. No evidence of appendicitis. No abdominal wall hernias. No bony lytic or blastic changes IMPRESSION: 1. Diffuse thickening of the distal esophagus and GE junction suspicious for neoplasm with suspected fistula into a right lower lobe abscess and diffuse pneumonia/consolidation of the right lower lobe surrounding the abscess. 2. NG tube tip is in the distal esophagus. There may be a mass at the GE junction precluding passage of the nasogastric tube. There is gaseous distention of the stomach and fluid distention of the duodenum. 3. Significant amount of fecalization of small bowel contents without significant dilatation. There are fluid-filled loops of small bowel proximally but no obvious transition point. Ileus is a consideration. Dictated by: Doe Cervantes MD 02/16/2021 14:02 Doe Cervantes MD in [facility] 02/16/2021 14:02
--- NOTE | 2021-02-16 12:51 | PC.NURSE ---
pt returned from CT at this time
--- NOTE | 2021-02-16 12:52 | PC.NURSE ---
pt return from CT CV lab staff at for echo
--- NOTE | 2021-02-16 12:54 | PC.NURSE ---
notified ER of bright red blood coming from NG tube at this time. just began when pt was hooked back up to suction when he returned from CT
[2021-02-16 12:59] LABS: Lactic Acid 12.9 mmol/L (0.7-2.1)
--- NOTE | 2021-02-16 12:59 | PC.NURSE ---
Najma Coulter called from lab with critical Lactic of 12.9, was repeated back.
--- NOTE | 2021-02-16 13:07 | PC.NURSE ---
Pt mother at
[2021-02-16 13:30] LABS: ABG Base Excess -6.5 mmol/L (-2.4-2.3); ABG HCO3 21.7 mmhg (22.0-26.0); ABG Oxygen Saturation 92 % (90-100); ABG PO2 78.8 mmhg (80-100); ABG TCO2 23.5 mmhg (23-27)
[2021-02-16 13:33] LABS: ABG PCO2 58.3 mmhg (35.0-45.0); ABG PH 7.19 mmol/L (7.35-7.45)
--- NOTE | 2021-02-16 13:34 | PC.NURSE ---
MACIE HINTON speaking with radiologist
[2021-02-16 14:18] LABS: Microscopic, Urine URINE MICROSCOPIC (MICROSCOPIC)
[2021-02-16 14:18] LABS: Coronavirus 19, PCR Not Detected (NotDetected); Influenza A, PCR Not Detected (NotDetected); Influenza B, PCR Not Detected (NotDetected)
--- NOTE | 2021-02-16 14:22 | PC.NURSE ---
Dr Blackman at [facility] speaking pts mother
[2021-02-16 14:23] LABS: Appearance,Urine CLEAR (Clear); Bilirubin,Urine Negative (Negative); Blood, Urine 3+ (Negative); Color,Urine YELLOW (Yellow); Glucose,Urine (UA) Negative (Negative); Ketones,Urine Negative (Negative); Leukocyte Esterase,Urine 1+ (Negative); Nitrate,Urine Negative (Negative); Protein,Urine Negative (Negative); Specific Gravity, Urine <= 1.005 (1.005-1.030)
[2021-02-16 14:30] LABS: Bacteria,Urine 1+ /lpf; RBC,Urine 20-50 #/hpf (0-3); Squamous Epithelial Cell,Urine Occasional #/hpf (0-5)
--- NOTE | 2021-02-16 14:31 | PC.NURSE ---
Dr. Blackman notified ER MD and ER staff that pt mother is calling her other sons to come to the hospital and then she wants to d/c medications and ventilator. will continue to monitor and await arrival of other family members. RT staff made aware of the above.
[2021-02-16 14:34] LABS: Amphetamine/Metha Screen,Urine Negative ng/ml (<1000); Benzodiazepines Screen,Urine Negative ng/ml (<200)
[2021-02-16 14:35] LABS: Barbiturates Screen,Urine Negative ng/ml (<200)
[2021-02-16 14:36] LABS: Cannabinoid Screen,Urine Negative ng/ml (<50); Cocaine Screen,Urine Negative ng/ml (<300)
[2021-02-16 14:37] LABS: Methadone Screen,Urine Negative ng/ml (<300); Opiate Screen,Urine Negative ng/ml (<300)
[2021-02-16 14:38] LABS: Phencyclidine Screen,Urine Negative ng/ml (<25)
--- NOTE | 2021-02-16 15:15 | PC.NURSE ---
All medicines stopped at this time and pt extubated.
--- NOTE | 2021-02-16 15:40 | PC.NURSE ---
Time of called by Dr. Rosas at 1540.
--- NOTE | 2021-02-16 15:46 | PC.NURSE ---
Per Diem Nurse called
--- NOTE | 2021-02-16 15:52 | PC.NURSE ---
Spoke with Sonam Samuel with [facility] who states pt can be released to home
[2021-02-16 16:40] LABS: Reflex Lactic Add Lactic Reflex
== END 2021-02-16 17:01 | disposition expired ==
PROVIDERS: Emergency Provider Emergency Medicine
DX: I46.9 Cardiac arrest, cause unspecified (principal); J85.2 Abscess of lung without pneumonia; R57.0 Cardiogenic shock; K22.8 Other specified diseases of esophagus; S01.81XA Laceration without foreign body of other part of head, initial encounter; J44.9 Chronic obstructive pulmonary disease, unspecified; F17.210 Nicotine dependence, cigarettes, uncomplicated
CPT/HCPCS: 31500; 70450; 71045; 71275; 72125; 74177; 80048; 80076; 80305; 81001; 82803; 83605; 84484; 85025; 87040; 87070; 87086; 87205; 93005; 93306; 93308; 96365; 96367; 96375; 99285; Q9967; U0003